=== PATIENT | male | born 1990 ===

== ENCOUNTER 2018-12-25 01:23 | Inpatient (IN) ==
[2018-12-25] MEDS ORDERED: SODIUM CHLORIDE 0.65% NA SOLN 45 ML (OCEAN) PRN (02:06)
[2018-12-25] MEDS ORDERED: ACETAMINOPHEN 325 MG TAB PO PRN (02:06)
[2018-12-25] MEDS ORDERED: ALUMINUM/MAGNESIUM SUSP 30 ML UDC PO PRN (02:06)
[2018-12-25] MEDS ORDERED: BISMUTH SUBSALICYLATE PER ML OMNICELL CHARGE PO PRN (02:06)
[2018-12-25] MEDS ORDERED: MAGNESIUM HYDROXIDE SUSP 30 ML UDC PO PRN (02:06)
[2018-12-25] MEDS ORDERED: PATIENT'S ALLERGY INFO NEEDS ENTERED SCH (03:00)
[2018-12-25] MEDS ORDERED: INFLUENZA VIRUS QUAD VACCINE 0.5 ML SYR IM ONE (08:15)
[2018-12-25] MEDS ORDERED: INFLUENZA ADMINISTRATION CHARGE ONE (08:15)
[2018-12-25] MEDS: NICOTINE 14 MG/24 HR PATCH TD SCH (10:50)
[2018-12-25] MEDS ORDERED: HALOPERIDOL 5 MG TAB PO PRN (11:48)
[2018-12-25] MEDS: HALOPERIDOL 5 MG TAB PO PRN ×2 (11:54→16:26)
--- NOTE | 2018-12-25 12:10 | History & Physical ---
Date of Service December 25, 2018 Impression / Recommendations Impression 28 yo male from [place], admitted voluntarily to our unit from [facility] after being observed to be confused at a local store. He has an unclear mental health history and we will need to call his father for additional information about past providers and medications. He doesn't like the seroquel he's on due to AM sedation which could then lead to noncompliance so will explore other options. For now will use Haldol 5 mg q 4 h prn, which he agrees to take, and continue depakote with level in the AM. Mood is depressed, tearful , but would like to get additional diagnositic information before considering an antidepressant. Abilify could be an option if no previous trial. At this time, the patient is in need of inpatient treatment due to the severity of his condition and the risk for self harm based on confused, slowed thinking. (1) Unspecified psychosis: 12/25 - Haldol 5 mg q 4 h prn psychosis until we obtain more information - Call father for additional supplemental information about past meds, psych providers and hospitalizations - Continue Depakote ER 100 mg HS with level in the AM - DC Seroquel - Q 15 min checks for safety - Excuse patient from groups today - Will need psychiatric aftercare - Safety planning - Patient doesn't know where his car is. Will need to clarify with [facility] police - Obtain records from [facility] Present on Admission?: Yes Inventory Assets Strengths: Willingness to engage in treatment Needs: To consistently be in psychiatric treatment Risk Factors Assessment Male: Yes : Yes Do You Have Access To A Gun?: No Health Problems: No Mental Health Diagnoses: Yes Substance Use Disorders: No Previous Attempt: No Family History of Suicide: Yes Previous Psychiatric Hospitalization: Yes Smoker: Yes Protective Factors Assessment : No Responsible for Young Children: No Employed: Yes Supportive Family: Yes Psychiatric History Identifying Data FIDENCIO ROMERO is a 28-year-old M from [place], who is admitted voluntarily on transfer from [facility] where he was taken after appearing confused at a local store. Information is gathered from the patient and not necessarily considered to be reliable. Chief Complaint "I wanted to go see my uncle and cousins.". History of Present Illness The patient is a 28 yo male who grew up in [place]. He is a difficult historian admitting his thoughts are confused and slowed. 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 He is embarrassed to go to work late. He recently decided that he wanted to go visit an uncle and cousins in [place], and left without notifying work. He says that he got as far as [place] before he became confused and didn't know where he was , and so he pulled over at a bar and had some beer and cigarettes. From there the timeline is a little unclear, but says that at one point he pulled into a nondenominational parking lot, spent the night somewhere at a hotel. The next day he found a map, and went to a gas station an "hung out for a few hours". He started driving again and got to [place] before he got confused again, pulled into a [employer] and had a proteing shake. It is reported that the store employees called 911 and he was taken to [facility], and from there transferred to our hospital. Today he was reluctant to get up for the interview, as he got little sleep last night. He reports that in the last month his mood has been "Very depressed.", "Very driven.", "Not happy.". His sleep is "pretty consistent" and energy is "good". He reports "a lot" of anxiety but denies panic attacks. He denies ever having had aud/vis hallucinations but had an experience in the [facility] ER during which he thought "all the blood was falling out of me". He reports slowed thoughts, saying he is having trouble expressing himself. He denies chronic problems with anger, but admits to hitting a tray in the [facility] ER in anger resulting in scraped knuckles. He denies chronic SIB, but tearfully says that he burnt himself once in the past. He says that he has been diagnosed with bipolar disorder, and schizoaffective disorder in the past, but is not currently being seen by a psychiatrist. Past Psychiatric History Previous Psych History: Difficult to determine at this time, but says that he has been seen by psychiatrists in the past Current Psychiatric Diagnosis: Bipolar disorder, schizoaffective disorder (per patient) Outpatient Services: None, but says he was to have been referred to a psychiatric provider. Previous Psych Admissions: 2009 Do You Have Access To A Gun?: No History of Previous Suicide Attempt: No Past Medication Trials: Risperdal- felt slowed Zyprexa- weight gain Haldol- "that's scarey" Prozac- didn't help Additional Notes: Says that he has had many med trials but can't remember details Allergies Allergy/AdvReac Type Severity Reaction Status Date / Time No Known Allergies Allergy Unverified 12/25/18 05:41 Home Medications Home Medications Medication Instructions Recorded Confirmed Type Depakote ER 1,000 mg PO HS 12/25/18 12/25/18 History quetiapine [Seroquel XR] 300 mg PO PM 12/25/18 12/25/18 History Family History Family History of: Depression (mother), Alcoholism/Drug Abuse (mother abused alcohol for a while) and Suicide Completion (grandfather) Alcohol History Hx of Alcohol Use Over the Past 12 Months: Yes (2-3 beers once per week) Says he will drink one night per week, denies legal problems related to alcohol Smoking Use Have You Smoked or Used Tobacco Products in the Last 30 Days: Yes tobacco type: cigarettes Smoking Status: Smoker, status unknown Substance History Hx of Prescription Med Misuse Over the Past 12 Months: No Hx of Over the Counter Med Misuse Over the Past 12 Months: No Hx of Inhalent Misuse Over the Past 12 Months: No Hx of Organic Substance Use Over the Past 12 Months: No Hx of Illegal Substances/Street Drug Use Over Past 12 Months: No Problems as a Result of Past Substance Use: None Identified Personal History Highest Grade Completed: High School Graduate Employment Status: [employer] Install[employer] Employed Marital Status: Single Number Of Children: None Beliefs That Will Affect Care: None Hx Legal Problems: No Hx Traumatic Life Events: No Patient History Social History Feels Safe at Home: Yes Smoking Status: Smoker, status unknown Beliefs That Will Affect Care: None Preferred Language: Hebrew Communication Ability: psychotic 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 Jas Fuchs in [facility] ED was reviewed and accepted as medical clearance for our unit. Psychiatric Orientation: alert and cooperative Apperance: appropriately dressed and appropriately groomed (shirt buttoned up incorrectly) Eye Contact: + poor eye contact Motor Behavior: steady gait and station and no abnormal motor movements Speech is slowed, quiet, garbled, at times hard to understand Affect: + tearful affect Mood: + depressed mood slowed Thought Content: + cognitive distortions Suicidal Thoughts: denies suicidal plan and denies suicidal intent; + reports suicidal thoughts Homicidal Thoughts: denies homicidal thoughts Hallucinations: no auditory hallucinations and no visual hallucinations Cognition: language grossly intact Estimated Intelligence: consistent with education level Insight: + severely impaired insight Judgement: + severely impaired judgement Vital Signs (Past 24 Hours) Last Vital Signs Resp 16 12/25/18 04:09 Results & Data Laboratory Results Labs from [facility] have been reviewed. Current Inpatient Medications Current Inpatient Medications: Current Inpatient Medications Acetaminophen (Tylenol) 650 mg PO Q4H PRN PRN Reason: Headache or Minor Fever Stop: 01/24/19 02:05 Al Hydrox/Mg Hydrox/Simethicone (Maalox) 30 ml PO Q4H PRN PRN Reason: GI Upset Stop: 01/24/19 02:05 Benztropine Mesylate (Cogentin) 1 mg PO Q4 PRN PRN Reason: EPS Stop: 01/24/19 02:10 Bismuth Subsalicylate (Kaopectate) 15 ml PO PRN PRN PRN Reason: Loose Stool Stop: 01/24/19 02:05 Divalproex Sodium (Depakote Extended Release) 1,000 mg PO HS [facility] Stop: 01/24/19 21:59 Haloperidol (Haldol) 5 mg PO Q4 PRN PRN Reason: Agitation Stop: 01/24/19 02:08 Haloperidol (Haldol) 5 mg PO Q4H PRN PRN Reason: psychosis Stop: 01/24/19 11:59 Hydroxyzine HCl (Vistaril) 50 mg PO HSZ PRN PRN Reason: Insomnia Stop: 01/24/19 02:05 Hydroxyzine HCl (Vistaril) 25 mg PO Q4H PRN PRN Reason: Anxiety Stop: 01/24/19 02:05 Lorazepam (Ativan) 2 mg PO Q4 PRN PRN Reason: Anxiety Stop: 01/24/19 02:07 Magnesium Hydroxide (Milk Of Magnesia) 30 ml PO DAILY PRN PRN Reason: Heartburn Stop: 01/24/19 02:05 Miscellaneous (Remove Nicoderm Patch) 1 ea N/A DAILY@2100 [facility] Stop: 01/24/19 20:59 Nicotine (Nicoderm Cq) 14 mg TD QAM [facility] Stop: 01/24/19 08:59 Last Admin: 12/25/18 10:50 Dose: 14 mg Nicotine Polacrilex (Nicorette 2mg) 1 piece MT UD PRN PRN Reason: Nicotine Withdrawal Stop: 01/24/19 02:05 Quetiapine Fumarate (Seroquel) 300 mg PO HS [facility] Stop: 01/24/19 21:59 Sodium Chloride ([place] Nasal) 1 - 2 sprays NA PRN PRN PRN Reason: Nasal Dryness/Congestion Stop: 01/24/19 02:05 CPT Code CPT Code Initial Hospital Care: 12885
[2018-12-25] MEDS: BENZTROPINE MESYLATE 1 MG TAB PO PRN (16:26)
[2018-12-25] MEDS: LORazepam 2 MG TAB PO PRN (16:26)
[2018-12-25] MEDS: DIVALPROEX EXTENDED RELEASE 500 MG TAB PO SCH (21:04)
[2018-12-25] MEDS ORDERED: QUETIAPINE FUMARATE 300 MG TABLET PO SCH (22:00)
[2018-12-26] MEDS: NICOTINE 14 MG/24 HR PATCH TD SCH ×2 (09:20→20:14)
--- NOTE | 2018-12-26 09:44 | Psychiatric Progress Note ---
Date of Service December 26, 2018 Impression / Recommendations Impression 28 yo male from [place], admitted voluntarily to our unit from [facility] ED after being observed to be confused at a local store. Father has provided additional information about his mental health history and treatment and we will send for records from his OP provider and the [facility] where he was inpatient for a year. He is agreeable to a trial of oral Invega which would provide the opportunity to move to Sustenna if needed We will continue depakote , but in view of having missed dosed will not order a level for 5 days. Will obtain FLP and FBS for monitoring purposes. (1) Unspecified psychosis: 12/25 - Haldol 5 mg q 4 h prn psychosis until we obtain more information - Call father for additional supplemental information about past meds, psych providers and hospitalizations - Continue Depakote ER 100 mg HS with level in the AM - DC Seroquel - Q 15 min checks for safety - Excuse patient from groups today - Will need psychiatric aftercare - Safety planning - Patient doesn't know where his car is. Will need to clarify with [facility] police - Obtain records from [place] hospitalization 12/26 - Invega 3 mg HS increasing to 6 mg tomorrow - Consider Sustenna for improved compliance, but would like to see previous records to determine why sustenna was stopped in the past. - Continue reality orientation, safety planning Inventory Assets Strengths: Willingness to engage in treatment Needs: To consistently be in psychiatric treatment Risk Factors Assessment Male: Yes : Yes Do You Have Access To A Gun?: No Health Problems: No Mental Health Diagnoses: Yes Substance Use Disorders: No Previous Attempt: No Family History of Suicide: Yes Previous Psychiatric Hospitalization: Yes Smoker: Yes Protective Factors Assessment : No Responsible for Young Children: No Employed: Yes Supportive Family: Yes Interval History Identifying Information 28 yo male from [place], admitted voluntarily on transfer from [place]. He had been found at a local store appearing confused. He has a long mental health hx, dx schizoaffective disorder, having been in the [facility] hospital for a year. Chief Complaint "I got a lot of rest.". Review of Systems Sleep Information Total Hours of Sleep: 9.5 Sleep Comments: pt appeared to sleep 2.5 hrs during evening shift . pt on q-15 minute checks Meal Information Percent Meal Consumed - Breakfast: 100 Percent Meal Consumed - Lunch: 100 Percent Meal Consumed - Dinner: 0 Subjective Subjective Patient was seen & assessed and interval progress reviewed with Treatment Team. Nursing reports that the patient received a prn of haldol yesterday and has slept much of the time since. Today he is slightly more organized, and slightly better able to express himself. I review with him the information provided by his father (see below) and Jose cannot provide any further clarification about past med trials. He doesn't remember anything about Sustenna and does not remember being on Invega pills. Today he says that he does not have auditory hallucinations but is having visual experiences ie seeing his father working, the house he grew up in, and his mother being distressed, but denies that these images are as real as I am to him. He rubs his knuckles expressing pain, saying that hitting the tray yesterday "was dumb" . He denies any clear delusions and says that he feels safe in this hospital. He denies side effects to medications. I review a trial of oral Invega including the need for monitoring labs and he agrees to try. He denies SI/HI. Summary of Past History 12/26/18 History from father. Patient's first hospitalization was at age 18 after a concussion. Jose saw a head injury specialist in [place] and was diagnosed with post concussive syndrome. He has had multiple hospitalizations over the years, diagnosis schizoaffective disorder, and was in [facility] for a year having been discharged about a year ago. He was discharged on court ordered medications and that order in fall 2017. The patient has a history of some aggressive behaviors including pushing people and hitting things and father was concerned about him being around other patients. He has been on multiple meds in the past, some of which include: haldol which caused him tremors, Clozaril to which he had side effects, and Sustenna. He currently lives with his parents in [place] and recieves his mental health care through [facility]. Father said that the patient had been at his new job for only 1 day, but felt that he didn't belong there. Father may come to visit this weekend. Medication Trials Clozaril- side effects Sustenna Haldol- tremor risperdal- slowed zyprexa- weight gain Physical Exam Psychiatric Orientation: alert and cooperative Apperance: appropriately dressed and appropriately groomed Eye Contact: + fair eye contact Motor Behavior: steady gait and station and no abnormal motor movements Less garbled today Affect: + blunted affect Mood: + anxious mood disorganized, with disconnected comments Thought Content: reality based without delusions Suicidal Thoughts: denies suicidal thoughts Homicidal Thoughts: denies homicidal thoughts Hallucinations: + visual hallucinations (sees his house, his father working and mother in distress); no auditory hallucinations Cognition: language grossly intact Estimated Intelligence: average estimated intelligence Insight: + impaired insight Judgement: + impaired judgement Vital Signs (Past 24 Hours) Last Vital Signs Temp 36.7 C 12/26/18 07:01 Pulse 73 12/26/18 07:02 Resp 16 12/26/18 07:01 BP 109/71 12/26/18 07:02 Results & Data Current Inpatient Medications Current Inpatient Medications: Current Inpatient Medications Acetaminophen (Tylenol) 650 mg PO Q4H PRN PRN Reason: Headache or Minor Fever Stop: 01/24/19 02:05 Al Hydrox/Mg Hydrox/Simethicone (Maalox) 30 ml PO Q4H PRN PRN Reason: GI Upset Stop: 01/24/19 02:05 Benztropine Mesylate (Cogentin) 1 mg PO Q4 PRN PRN Reason: EPS Stop: 01/24/19 02:10 Last Admin: 12/25/18 16:26 Dose: 1 mg Bismuth Subsalicylate (Kaopectate) 15 ml PO PRN PRN PRN Reason: Loose Stool Stop: 01/24/19 02:05 Divalproex Sodium (Depakote Extended Release) 1,000 mg PO HS [facility] Stop: 01/24/19 21:59 Last Admin: 12/25/18 21:04 Dose: 1,000 mg Haloperidol (Haldol) 5 mg PO Q4 PRN PRN Reason: Agitation Stop: 01/24/19 02:08 Last Admin: 12/25/18 16:26 Dose: 5 mg Hydroxyzine HCl (Vistaril) 50 mg PO HSZ PRN PRN Reason: Insomnia Stop: 01/24/19 02:05 Hydroxyzine HCl (Vistaril) 25 mg PO Q4H PRN PRN Reason: Anxiety Stop: 01/24/19 02:05 Lorazepam (Ativan) 2 mg PO Q4 PRN PRN Reason: Anxiety Stop: 01/24/19 02:07 Last Admin: 12/25/18 16:26 Dose: 2 mg Magnesium Hydroxide (Milk Of Magnesia) 30 ml PO DAILY PRN PRN Reason: Heartburn Stop: 01/24/19 02:05 Miscellaneous (Remove Nicoderm Patch) 1 ea N/A DAILY@2100 [facility] Stop: 01/24/19 20:59 Last Admin: 12/25/18 21:07 Dose: Not Given Nicotine (Nicoderm Cq) 14 mg TD QAM [facility] Stop: 01/24/19 08:59 Last Admin: 12/26/18 09:20 Dose: Not Given Nicotine Polacrilex (Nicorette 2mg) 1 piece MT UD PRN PRN Reason: Nicotine Withdrawal Stop: 01/24/19 02:05 Sodium Chloride ([place] Nasal) 1 - 2 sprays NA PRN PRN PRN Reason: Nasal Dryness/Congestion Stop: 01/24/19 02:05 Post Discharge Appointments Primary Care Physician Name Of Family Doctor: unknown CPT Code CPT Code 34987
--- NOTE | 2018-12-26 15:13 | Medical Student Progress Note ---
Date of Service December 26, 2018 Assessment & Plan (1) Unspecified psychosis: This is a 28-year-old man with a history of unspecific psychotic disorder who was taken to an emergency department in [place] for being found acting strangely in a store and was transferred to [facility] for psychiatric care. He is in good spirits today and has no complaints, however, he still has strange behavior such as sitting sideways in a chair and making poor eye contact. His responses are tangential. He required frequent redirection while playing games with the group. He has poor memory and insight into his condition. 1. Unspecified psychotic disorder - Anticipate outpatient records for more detail on his diagnoses as he is a poor historian. - Continue Depakote ER 100mg qHS - Continue paliperidone 3mg qHS. Escalate to 6mg on 12/27. Goal is to transition to IM therapy as he is noncompliant with his medications. - Continue haloperidol 5mg q4 PRN and benztropine 1 mg q4 PRN. - Encourage group therapy and activities. - Q15 safety checks. - Plan for family meeting. 2. Disposition - Jose continues to have disorganized thoughts and speech. - Continue inpatient hospitalization until meds are optimized and outpatient care coordinated. Subjective This is a 28-year-old man with a history of unspecific psychotic disorder who was taken to an emergency department in [place] for being found acting strangely in a store and was transferred to [facility] for psychiatric care. He says he thinks he has "a mild form of schizophrenia." He said he had a "great night' s sleep" and that he's been eating well. He describes his mood as "refreshed." He denies hallucinations, suicidal ideation, or homicidal ideation. His goal during his hospitalization is to "get healthy." Jose offers no more coherent history at this time. Physical Exam 2 Vital Signs (Past 24 Hours): Last Vital Signs Temp 36.7 C 12/26/18 07:01 Pulse 73 12/26/18 07:02 Resp 16 12/26/18 07:01 BP 109/71 12/26/18 07:02 Psychiatric: Orientation: alert Apperance: appropriately dressed and appropriately groomed Eye Contact: + poor eye contact (Jose sits sideways in his chair and looks at the wall, but occasionally glances to make eye contact ) Motor Behavior: no abnormal motor movements Speech: normal rate/rhythm/ volume of speech Affect: euthymic affect Thought Process: + thought blocking and + tangential thought process Suicidal Thoughts: denies suicidal thoughts Homicidal Thoughts: denies homicidal thoughts Hallucinations: no auditory hallucinations and no visual hallucinations Cognition: + recent memory not intact and + remote memory not intact Insight: + impaired insight Judgement: + impaired judgement Results & Data Medications Administered Benztropine Mesylate (Cogentin) 1 mg PO Q4 PRN PRN Reason: EPS Stop: 01/24/19 02:10 Last Admin: 12/25/18 16:26 Dose: 1 mg Divalproex Sodium (Depakote Extended Release) 1,000 mg PO HS [facility] Stop: 01/24/19 21:59 Last Admin: 12/25/18 21:04 Dose: 1,000 mg Haloperidol (Haldol) 5 mg PO Q4 PRN PRN Reason: Agitation Stop: 01/24/19 02:08 Last Admin: 12/25/18 16:26 Dose: 5 mg Admin: 12/25/18 11:54 Dose: 5 mg Lorazepam (Ativan) 2 mg PO Q4 PRN PRN Reason: Anxiety Stop: 01/24/19 02:07 Last Admin: 12/25/18 16:26 Dose: 2 mg Miscellaneous (Remove Nicoderm Patch) 1 ea N/A DAILY@2100 [facility] Stop: 01/24/19 20:59 Last Admin: 12/25/18 21:07 Dose: Not Given Nicotine (Nicoderm Cq) 14 mg TD QAM [facility] Stop: 01/24/19 08:59 Last Admin: 12/26/18 09:20 Dose: Not Given Admin: 12/25/18 10:50 Dose: 14 mg
[2018-12-26] MEDS: PALIPERIDONE 3 MG TABCR PO SCH (20:56)
[2018-12-26] MEDS: DIVALPROEX EXTENDED RELEASE 500 MG TAB PO SCH (20:56)
--- NOTE | 2018-12-27 08:27 | Psychiatric Progress Note ---
Date of Service December 27, 2018 Impression / Recommendations Impression 28 y/o male from [place], admitted voluntarily to our unit from [facility] after leaving [place] and driving to [place] where he became lost, eventually coming to [place] and was confused in a local store. Father has provided additional information about his mental health history and treatment and we have reviewed records from his OP psychiatrist, and have requested state [facility] records where he was inpatient for a year. He has agreed to a trial of oral Invega which would provide the opportunity to move to Sustenna if needed We continued Depakote, but in view of having missed doses will not order a level for 5 days. Inpatient treatment is medically necessary as he continues with psychosis and disorganization. (1) Unspecified psychosis: 12/25 - Haldol 5 mg q 4 h prn psychosis until we obtain more information - Call father for additional supplemental information about past meds, psych providers and hospitalizations - Continue Depakote ER 100 mg HS with level in the AM - DC Seroquel - Q 15 min checks for safety - Excuse patient from groups today - Will need psychiatric aftercare - Safety planning - Patient doesn't know where his car is. Will need to clarify with [facility] police - Obtain records from [place] hospitalization 12/26 - Invega 3 mg HS increasing to 6 mg tomorrow - Consider Sustenna for improved compliance, but would like to see previous records to determine why Sustenna was stopped in the past. - Continue reality orientation, safety planning 12/27 - Collateral obtained from parents and outpatient psychiatric records reviewed, awaiting [facility] records. - Continue paliperidone and increase to 6 mg daily. Fasting lipid profile and glucose ordered for tomorrow morning for monitoring on an atypical antipsychotic. - Parents coming this weekend from [place], will hold family meeting. Inventory Assets Strengths: Willingness to engage in treatment Needs: To consistently be in psychiatric treatment Risk Factors Assessment Male: Yes : Yes Do You Have Access To A Gun?: No Health Problems: No Mental Health Diagnoses: Yes Substance Use Disorders: No Previous Attempt: No Family History of Suicide: Yes Previous Psychiatric Hospitalization: Yes Smoker: Yes Protective Factors Assessment : No Responsible for Young Children: No Employed: Yes Supportive Family: Yes Interval History Identifying Information 28 yo male from [place], admitted voluntarily on 12/25/18 on transfer from [place]. He had been found at a local store appearing confused. He has a long mental health hx, dx schizoaffective disorder, having been in the [facility] for a year. Chief Complaint "I don't know". Review of Systems Sleep Information Total Hours of Sleep: 4 Sleep Comments: pt given vistaril per rn. pt on q-15 minute checks Meal Information Percent Meal Consumed - Breakfast: 100 Percent Meal Consumed - Lunch: 100 Percent Meal Consumed - Dinner: 100 Medication Trials Clozaril- side effects Sustenna Haldol- tremor risperdal- slowed zyprexa- weight gain Subjective Subjective Patient was seen & assessed and interval progress reviewed with Treatment Team. Staff report he attends some groups but is unable to participate appropriately, is disorganized, and records were obtained from his previous outpatient psychiatrist at [facility] (see below). On my assessment today, he was seen with Grace Loving MS4. He reports he is tired, and answers "I don't know" to many questions. He denies side effects to medication, and then says "it 's just sugar, I had two cokes..." He says groups are "okay" and cannot give further information. He says he is improving, but cannot say how, "I don't know." He describes his mood as "well....I'm really tired, I had two cokes, I was running around a couple days ago, cigarettes..." Summary of Past History Records reviewed from [facility]: Discharge summary (admission date 05/15/2018 -discharge date 09/12/2018). He had been living at a [facility] rehab facility, reported a history of multiple head injuries from football, alcohol abuse, mood instability, and paranoia. He was referred to the [facility] from [facility] of mental health, after he walked into their clinic in February 2018 with his child welfare caseworker from [place], as he was living locally at the rehab facility. He was on an AOT, and reported history of heather for which she had been hospitalized multiple times, as well as a history of depression, but was a poor historian. He also reported a history of delusional thinking. His first hospitalization was in 2007 at age 18 for a "nervous breakdown" in the context of academic and relationship stressors. He was hospitalized at [facility] for about 2 weeks, and has had 7 additional hospitalizations since that time. Most of his hospitalizations were due to aggressive behavior and psychosis or heather. He had been on Depakote since age 18 and tolerated it well, but had failed multiple antipsychotic trials due to side effects. He was on clozapine at the time and reported morning sedation from it. He started drinking in ninth grade, and became a heavy alcohol user during his nadir year of high school. He also reported a history of cannabis, cocaine, and mushroom use. He was ambivalent about stopping alcohol and cigarette use. He reported a history of multiple head injuries while playing football in high school, he denied loss of consciousness. He was diagnosed with schizoaffective disorder bipolar type, and rule out mood and psychotic disorder due to TBI. He was seen only twice in the program, as he only stayed at the rehab facility for 1 month, if he did not participate in the program. His parents then took him to multiple shelters in [place], but they would not accept him, so they took him home. He was then transferred back to [facility] clinic. Medication Trials Clozaril- side effects Sustenna -did well Haldol- tremor risperdal- slowed zyprexa- weight gain Aripiprazole -poor compliance Depakote -since age 18 Physical Exam Psychiatric Appears tired Apperance: appropriately dressed and appeared stated age WNWD WM, mildly disheveled Eye Contact: + poor eye contact Motor Behavior: steady gait and station and no abnormal motor movements Underproductive Affect: + blunted affect patient answered with unrelated information Thought Process: + thought blocking, + tangential thought process and + incoherent thought process paucity of thought content Hallucinations: no auditory hallucinations Cognition: + recent memory not intact, + attention not intact and + language not intact Insight: + impaired insight Judgement: + impaired judgement Vital Signs (Past 24 Hours) Last Vital Signs Temp 36.4 C L 12/27/18 06:46 Pulse 72 12/27/18 06:47 Resp 16 12/27/18 06:46 BP 99/61 L 12/27/18 06:47 Results & Data Current Inpatient Medications Current Inpatient Medications: Current Inpatient Medications Acetaminophen (Tylenol) 650 mg PO Q4H PRN PRN Reason: Headache or Minor Fever Stop: 01/24/19 02:05 Al Hydrox/Mg Hydrox/Simethicone (Maalox) 30 ml PO Q4H PRN PRN Reason: GI Upset Stop: 01/24/19 02:05 Benztropine Mesylate (Cogentin) 1 mg PO Q4 PRN PRN Reason: EPS Stop: 01/24/19 02:10 Last Admin: 12/25/18 16:26 Dose: 1 mg Bismuth Subsalicylate (Kaopectate) 15 ml PO PRN PRN PRN Reason: Loose Stool Stop: 01/24/19 02:05 Divalproex Sodium (Depakote Extended Release) 1,000 mg PO HS LOKESH Stop: 01/24/19 21:59 Last Admin: 12/26/18 20:56 Dose: 1,000 mg Haloperidol (Haldol) 5 mg PO Q4 PRN PRN Reason: Agitation Stop: 01/24/19 02:08 Last Admin: 12/25/18 16:26 Dose: 5 mg Hydroxyzine HCl (Vistaril) 50 mg PO HSZ PRN PRN Reason: Insomnia Stop: 01/24/19 02:05 Last Admin: 12/27/18 01:49 Dose: 50 mg Hydroxyzine HCl (Vistaril) 25 mg PO Q4H PRN PRN Reason: Anxiety Stop: 01/24/19 02:05 Lorazepam (Ativan) 2 mg PO Q4 PRN PRN Reason: Anxiety Stop: 01/24/19 02:07 Last Admin: 12/25/18 16:26 Dose: 2 mg Magnesium Hydroxide (Milk Of Magnesia) 30 ml PO DAILY PRN PRN Reason: Heartburn Stop: 01/24/19 02:05 Miscellaneous (Remove Nicoderm Patch) 1 ea N/A DAILY@2100 LOKESH Stop: 01/24/19 20:59 Last Admin: 12/26/18 20:57 Dose: Not Given Nicotine (Nicoderm Cq) 14 mg TD QAM LOKESH Stop: 01/24/19 08:59 Last Admin: 12/26/18 20:14 Dose: 14 mg Nicotine Polacrilex (Nicorette 2mg) 1 piece MT UD PRN PRN Reason: Nicotine Withdrawal Stop: 01/24/19 02:05 Paliperidone (Invega) 3 mg PO HS LOKESH; Taper Stop: 03/15/19 21:59 Last Admin: 12/26/18 20:56 Dose: 3 mg Sodium Chloride ([place] Nasal) 1 - 2 sprays NA PRN PRN PRN Reason: Nasal Dryness/Congestion Stop: 01/24/19 02:05 Post Discharge Appointments Primary Care Physician Name Of Family Doctor: unknown CPT Code CPT Code 58350
[2018-12-27] MEDS: NICOTINE 14 MG/24 HR PATCH TD SCH (13:22)
[2018-12-27] MEDS: HALOPERIDOL 5 MG TAB PO PRN ×2 (14:19→19:01)
--- NOTE | 2018-12-27 16:16 | Medical Student Progress Note ---
Date of Service December 27, 2018 Assessment & Plan (1) Unspecified psychosis: This is a 28-year-old man with a history of unspecific psychotic disorder who was taken to an emergency department in [place] for being found acting strangely in a store and was transferred to [facility] for psychiatric care. Jose continues to exhibit psychotic behavior such as talking to himself, laughing inappropriately, and highly disorganized thought processes. 1. Unspecified psychotic disorder - Anticipate outpatient records for more detail on his diagnoses as he is a poor historian. - Continue Depakote ER 100mg qHS - Escalate to paliperidone 6mg on 12/27. Goal is to transition to IM therapy as he is noncompliant with his medications. - Follow fasting lipid panel and blood glucose - Continue haloperidol 5mg q4 PRN and benztropine 1 mg q4 PRN. - Encourage group therapy and activities. - Q15 safety checks. - Plan for family meeting. 2. Disposition - Jose continues to have disorganized thoughts and speech. - Continue inpatient hospitalization until meds are optimized and outpatient care coordinated. Subjective This is a 28-year-old man with a history of unspecific psychotic disorder who was taken to an emergency department in [place] for being found acting strangely in a store and was transferred to [facility] for psychiatric care. He is interviewed right after waking up and says, "I don't know, I'm just really tired." He says he is doing better but when asked to elaborote, he does not answer. He says "I don't know how to express myself anymore." He says is sleep and appetite are both good. He offers no more history. Staff have observed him pacing, speaking to himself, and laughing inappropriately. Physical Exam 2 Vital Signs (Past 24 Hours): Last Vital Signs Temp 36.4 C L 12/27/18 06:46 Pulse 72 12/27/18 06:47 Resp 16 12/27/18 06:46 BP 99/61 L 12/27/18 06:47 Psychiatric: Orientation: alert Apperance: appropriately dressed and appropriately groomed Eye Contact: + poor eye contact (eyes are closed for most of the visit) Motor Behavior: no abnormal motor movements Speech: + abnormal rate/rhythm/volume of speech (speech is mumbled and trails off. Answers are short and delayed.) Affect: + blunted affect Mood: + dysphoric mood (tired) Thought Process: + thought blocking (paucity of speech ) and + tangential thought process Hallucinations: + auditory hallucinations and + visual hallucinations Cognition: + recent memory not intact and + remote memory not intact Insight: + impaired insight Judgement: + impaired judgement Results & Data Medications Administered Acetaminophen (Tylenol) 650 mg PO Q4H PRN PRN Reason: Headache or Minor Fever Stop: 01/24/19 02:05 Last Admin: 12/27/18 15:41 Dose: 650 mg Benztropine Mesylate (Cogentin) 1 mg PO Q4 PRN PRN Reason: EPS Stop: 01/24/19 02:10 Last Admin: 12/25/18 16:26 Dose: 1 mg Divalproex Sodium (Depakote Extended Release) 1,000 mg PO HS LOKESH Stop: 01/24/19 21:59 Last Admin: 12/26/18 20:56 Dose: 1,000 mg Admin: 12/25/18 21:04 Dose: 1,000 mg Haloperidol (Haldol) 5 mg PO Q4 PRN PRN Reason: Agitation Stop: 01/24/19 02:08 Last Admin: 12/27/18 14:19 Dose: 5 mg Admin: 12/25/18 16:26 Dose: 5 mg Admin: 12/25/18 11:54 Dose: 5 mg Hydroxyzine HCl (Vistaril) 50 mg PO HSZ PRN PRN Reason: Insomnia Stop: 01/24/19 02:05 Last Admin: 12/27/18 01:49 Dose: 50 mg Lorazepam (Ativan) 2 mg PO Q4 PRN PRN Reason: Anxiety Stop: 01/24/19 02:07 Last Admin: 12/25/18 16:26 Dose: 2 mg Miscellaneous (Remove Nicoderm Patch) 1 ea N/A DAILY@2100 [facility] Stop: 01/24/19 20:59 Last Admin: 12/26/18 20:57 Dose: Not Given Admin: 12/25/18 21:07 Dose: Not Given Nicotine (Nicoderm Cq) 14 mg TD QAM LOKESH Stop: 01/24/19 08:59 Last Admin: 12/27/18 13:22 Dose: 14 mg Admin: 12/26/18 20:14 Dose: 14 mg Admin: 12/26/18 09:20 Dose: Not Given Admin: 12/25/18 10:50 Dose: 14 mg Paliperidone (Invega) 3 mg PO HS LOKESH; Taper Stop: 01/26/19 21:59 Last Admin: 12/26/18 20:56 Dose: 3 mg
[2018-12-27] MEDS: LORazepam 2 MG TAB PO PRN (19:01)
[2018-12-27] MEDS: BENZTROPINE MESYLATE 1 MG TAB PO PRN (19:01)
[2018-12-27] MEDS: DIVALPROEX EXTENDED RELEASE 500 MG TAB PO SCH (21:09)
[2018-12-27] MEDS: PALIPERIDONE 3 MG TABCR PO SCH (21:09)
[2018-12-28 08:58] LABS: Glucose Fasting 89 mg/dl (70-99)
[2018-12-28 09:05] LABS: Chol HDL Ratio 4; Cholesterol 169 mg/dl (0-200); HDL Cholesterol 48 mg/dl; LDL Cholesterol Calculated 104 mg/dl; Triglycerides 83 mg/dl (0-150); VLDL Cholesterol 17 mg/dl
[2018-12-28] MEDS: NICOTINE 14 MG/24 HR PATCH TD SCH (09:18)
[2018-12-28] MEDS: NICOTINE POLACRILEX 2 MG GUM MT PRN (10:01)
--- NOTE | 2018-12-28 10:27 | Psychiatric Progress Note ---
Date of Service December 28, 2018 Impression / Recommendations Impression thoughts not slowed, and are more organized, but he remains delusional and having intermittant aud hallucinations. Invega just increased to 6 mg last night and so will continue for now, but will benefit from Sustenna given parents reports of medication noncompliance. Will continue to encourage use of prn haldol if feeling agitated. due to his lack of impulse control yesterday, will maintain on MNPR for now. Parents planning to visit this weekend. (1) Unspecified psychosis: 12/25 - Haldol 5 mg q 4 h prn psychosis until we obtain more information - Call father for additional supplemental information about past meds, psych providers and hospitalizations - Continue Depakote ER 100 mg HS with level in the AM - DC Seroquel - Q 15 min checks for safety - Excuse patient from groups today - Will need psychiatric aftercare - Safety planning - Patient doesn't know where his car is. Will need to clarify with [facility] police - Obtain records from [place] hospitalization 12/26 - Invega 3 mg HS increasing to 6 mg tomorrow - Consider Sustenna for improved compliance, but would like to see previous records to determine why Sustenna was stopped in the past. - Continue reality orientation, safety planning 12/27 - Collateral obtained from parents and outpatient psychiatric records reviewed, awaiting [facility] records. - Continue paliperidone and increase to 6 mg daily. Fasting lipid profile and glucose ordered for tomorrow morning for monitoring on an atypical antipsychotic. - Parents coming this weekend from [place], will hold family meeting. 12/28 - Continue Invega 6 mg and if no limiting side effects, initiate Sustenna - Patient c/o some restlessnes and muscle sensations. Will order one time dose Artane 5 mg and if helpful will schedule. Inventory Assets Strengths: Willingness to engage in treatment Needs: To consistently be in psychiatric treatment Risk Factors Assessment Male: Yes : Yes Do You Have Access To A Gun?: No Health Problems: No Mental Health Diagnoses: Yes Substance Use Disorders: No Previous Attempt: No Family History of Suicide: Yes Previous Psychiatric Hospitalization: Yes Smoker: Yes Protective Factors Assessment : No Responsible for Young Children: No Employed: Yes Supportive Family: Yes Interval History Identifying Information 28 yo male from [place], admitted voluntarily on 12/25/18 on transfer from [place]. He had been found at a local store appearing confused. He has a long mental health hx, dx schizoaffective disorder, having been in the [facility] for a year. Chief Complaint "Better today. ". Review of Systems Sleep Information Total Hours of Sleep: 9.5 Sleep Comments: changed his sleep position a few times during each hour. sleep hours total between 01/22 and 09/20 shifts Meal Information Percent Meal Consumed - Breakfast: 100 Percent Meal Consumed - Lunch: 100 Percent Meal Consumed - Dinner: 100 Medication Trials Clozaril- side effects Sustenna Haldol- tremor risperdal- slowed zyprexa- weight gain Subjective Subjective Patient was seen & assessed and interval progress reviewed with Treatment Team. Yesterday afternoon the patient had an episode of agitation/psychosis, believing that a visitor was communicating with him negatively, and in response he started to yell at him and make verbal threats. He was redirected to his room, and he willingly took prn meds. Today he reviews that incident saying that he was having muscle tension in his legs, and experiencing "waves of energy " in the room leading him to feel agitated. Then he heard a voice that he thought was the devil, thought it was coming from a visitor in the dayroom and felt threatened. He believes that the prn haldol was helpful and today says the he is "thinking more clearly". He denies any further episodes of hearing the devil or any other voice, and recognizes that the visitor was not talking to him or in any way threatening, and says that he apoligized to the patient of the visitor. He does say that he feels stiff in the morning, as if he needs to stretch, and possibly restless. He agrees to a one time dose of Artane Summary of Past History 12/26/18 History from father. Patient's first hospitalization was at age 18 after a concussion. Jose saw a head injury specialist in [place] and was diagnosed with post concussive syndrome. He has had multiple hospitalizations over the years, diagnosis schizoaffective disorder, and was in [facility] for a year having been discharged about a year ago. He was discharged on court ordered medications and that order in fall 2017. The patient has a history of some aggressive behaviors including pushing people and hitting things and father was concerned about him being around other patients. He has been on multiple meds in the past, some of which include: haldol which caused him tremors, Clozaril to which he had side effects, and Sustenna. He currently lives with his parents in [place] and recieves his mental health care through [facility]. Father said that the patient had been at his new job for only 1 day, but felt that he didn't belong there. Father may come to visit this weekend. Medication Trials Clozaril- side effects Sustenna Haldol- tremor risperdal- slowed zyprexa- weight gain Physical Exam Psychiatric Orientation: alert and cooperative Apperance: appropriately dressed and appropriately groomed Eye Contact: good eye contact Motor Behavior: + psychomotor agitation (mild, repositioning frequently) Speech: normal rate/rhythm/volume of speech Affect: + blunted affect Mood: + anxious mood Thought Process: goal directed thought process Thought Content: + delusions Suicidal Thoughts: denies suicidal thoughts Homicidal Thoughts: denies homicidal thoughts Hallucinations: + auditory hallucinations; no visual hallucinations Cognition: recent memory grossly intact, remote memory grossly intact, attention grossly intact and language grossly intact Estimated Intelligence: average estimated intelligence Insight: + impaired insight Judgement: + impaired judgement Vital Signs (Past 24 Hours) Last Vital Signs Temp 36.3 C L 12/28/18 06:47 Pulse 53 L 12/28/18 06:47 Resp 16 12/28/18 06:47 BP 91/56 L 12/28/18 06:47 Results & Data Laboratory Results Laboratory Results - last 24 hr 12/28/18 08:08 Fasting Glucose 89 Triglycerides 83 Cholesterol 169 LDL Cholesterol, Calc 104 VLDL Cholesterol, Calc 17 HDL Cholesterol 48 Cholesterol/HDL Ratio 4 Current Inpatient Medications Current Inpatient Medications: Current Inpatient Medications Acetaminophen (Tylenol) 650 mg PO Q4H PRN PRN Reason: Headache or Minor Fever Stop: 01/24/19 02:05 Last Admin: 12/27/18 15:41 Dose: 650 mg Al Hydrox/Mg Hydrox/Simethicone (Maalox) 30 ml PO Q4H PRN PRN Reason: GI Upset Stop: 01/24/19 02:05 Benztropine Mesylate (Cogentin) 1 mg PO Q4 PRN PRN Reason: EPS Stop: 01/24/19 02:10 Last Admin: 12/27/18 19:01 Dose: 1 mg Bismuth Subsalicylate (Kaopectate) 15 ml PO PRN PRN PRN Reason: Loose Stool Stop: 01/24/19 02:05 Divalproex Sodium (Depakote Extended Release) 1,000 mg PO HS LOKESH Stop: 01/24/19 21:59 Last Admin: 12/27/18 21:09 Dose: 1,000 mg Haloperidol (Haldol) 5 mg PO Q4 PRN PRN Reason: Agitation Stop: 01/24/19 02:08 Last Admin: 12/27/18 19:01 Dose: 5 mg Hydroxyzine HCl (Vistaril) 50 mg PO HSZ PRN PRN Reason: Insomnia Stop: 01/24/19 02:05 Last Admin: 12/27/18 01:49 Dose: 50 mg Hydroxyzine HCl (Vistaril) 25 mg PO Q4H PRN PRN Reason: Anxiety Stop: 01/24/19 02:05 Lorazepam (Ativan) 2 mg PO Q4 PRN PRN Reason: Anxiety Stop: 01/24/19 02:07 Last Admin: 12/27/18 19:01 Dose: 2 mg Magnesium Hydroxide (Milk Of Magnesia) 30 ml PO DAILY PRN PRN Reason: Heartburn Stop: 01/24/19 02:05 Miscellaneous (Remove Nicoderm Patch) 1 ea N/A DAILY@2100 LOKESH Stop: 01/24/19 20:59 Last Admin: 12/27/18 21:09 Dose: Not Given Nicotine (Nicoderm Cq) 14 mg TD QAM [facility] Stop: 01/24/19 08:59 Last Admin: 12/28/18 09:18 Dose: 14 mg Nicotine Polacrilex (Nicorette 2mg) 1 piece MT UD PRN PRN Reason: Nicotine Withdrawal Stop: 01/24/19 02:05 Last Admin: 12/28/18 10:01 Dose: 1 piece Paliperidone (Invega) 6 mg PO HS [facility]; Taper Stop: 01/26/19 21:59 Last Admin: 12/27/18 21:09 Dose: 6 mg Sodium Chloride ([place] Nasal) 1 - 2 sprays NA PRN PRN PRN Reason: Nasal Dryness/Congestion Stop: 01/24/19 02:05 Post Discharge Appointments Primary Care Physician Name Of Family Doctor: unknown CPT Code CPT Code 52806
[2018-12-28] MEDS ORDERED: TRIHEXYPHENIDYL HCL 2 MG TAB PO ONE (10:45)
--- NOTE | 2018-12-28 14:16 | Medical Student Progress Note ---
Date of Service December 28, 2018 Assessment & Plan (1) Unspecified psychosis: This is a 28-year-old man with a history of unspecific psychotic disorder who was taken to an emergency department in [place] for being found acting strangely in a store and was transferred to [facility] for psychiatric care. Jose continues to exhibit psychotic behavior such as talking to himself, laughing inappropriately, and highly disorganized thought processes. 1. Unspecified psychotic disorder - Anticipate outpatient records for more detail on his diagnoses as he is a poor historian. - Continue Depakote ER 100mg qHS - Escalate to paliperidone 6mg on 12/27. Goal is to transition to IM therapy as he is noncompliant with his medications. - Fasting lipid panel and blood glucose are WNL. - Continue haloperidol 5mg q4 PRN and benztropine 1 mg q4 PRN. - Begin trihexyphenidyl for restlessness - Encourage group therapy and activities. - Q15 safety checks. - Plan for family meeting on Saturday 12/30. 2. Disposition - Jose continues to have disorganized thoughts and speech. - Continue inpatient hospitalization until meds are optimized and outpatient care coordinated. Subjective This is a 28-year-old man with a history of unspecific psychotic disorder who was taken to an emergency department in [place] for being found acting strangely in a store and was transferred to [facility] for psychiatric care. When asked how he's doing he says, "I got fired up." He says he feels the need to "get the blood flowing" because he's anxious. He elaborates by saying that he's homesick but is also worried about what bed his parents will let him sleep in. He says he slept in his sister's room, went through her stuff, chuckled and said , "she can't get over her ex." He says that he is also anxious in anticipating his family meeting. Overall, he says "things are picking up" because he's better able to "calm down" and his "muscles are getting into a regular rhythm. He denies SI, HI, and hallucinations. Physical Exam 2 Vital Signs (Past 24 Hours): Last Vital Signs Temp 36.3 C L 12/28/18 06:47 Pulse 53 L 12/28/18 06:47 Resp 16 12/28/18 06:47 BP 91/56 L 12/28/18 06:47 Psychiatric: Orientation: alert Apperance: appropriately dressed and appropriately groomed Eye Contact: + fair eye contact Motor Behavior: no abnormal motor movements Speech: + abnormal rate/rhythm/volume of speech ( speech is mumbled and trails off. ) Affect: euthymic affect and + blunted affect Mood: + anxious mood Thought Process: + tangential thought process (random laughter in conversation) Suicidal Thoughts: denies suicidal thoughts Homicidal Thoughts: denies homicidal thoughts Hallucinations: no auditory hallucinations and no visual hallucinations Cognition: + recent memory not intact and + remote memory not intact Insight: + impaired insight Judgement: + impaired judgement Results & Data Medications Administered Acetaminophen (Tylenol) 650 mg PO Q4H PRN PRN Reason: Headache or Minor Fever Stop: 01/24/19 02:05 Last Admin: 12/27/18 15:41 Dose: 650 mg Benztropine Mesylate (Cogentin) 1 mg PO Q4 PRN PRN Reason: EPS Stop: 01/24/19 02:10 Last Admin: 12/27/18 19:01 Dose: 1 mg Admin: 12/25/18 16:26 Dose: 1 mg Divalproex Sodium (Depakote Extended Release) 1,000 mg PO HS LOKESH Stop: 01/24/19 21:59 Last Admin: 12/27/18 21:09 Dose: 1,000 mg Admin: 12/26/18 20:56 Dose: 1,000 mg Admin: 12/25/18 21:04 Dose: 1,000 mg Haloperidol (Haldol) 5 mg PO Q4 PRN PRN Reason: Agitation Stop: 01/24/19 02:08 Last Admin: 12/27/18 19:01 Dose: 5 mg Admin: 12/27/18 14:19 Dose: 5 mg Admin: 12/25/18 16:26 Dose: 5 mg Admin: 12/25/18 11:54 Dose: 5 mg Hydroxyzine HCl (Vistaril) 50 mg PO HSZ PRN PRN Reason: Insomnia Stop: 01/24/19 02:05 Last Admin: 12/27/18 01:49 Dose: 50 mg Lorazepam (Ativan) 2 mg PO Q4 PRN PRN Reason: Anxiety Stop: 01/24/19 02:07 Last Admin: 12/27/18 19:01 Dose: 2 mg Admin: 12/25/18 16:26 Dose: 2 mg Miscellaneous (Remove Nicoderm Patch) 1 ea N/A DAILY@2100 [facility] Stop: 01/24/19 20:59 Last Admin: 12/27/18 21:09 Dose: Not Given Admin: 12/26/18 20:57 Dose: Not Given Admin: 12/25/18 21:07 Dose: Not Given Nicotine (Nicoderm Cq) 14 mg TD QAM [facility] Stop: 01/24/19 08:59 Last Admin: 12/28/18 09:18 Dose: 14 mg Admin: 12/27/18 13:22 Dose: 14 mg Admin: 12/26/18 20:14 Dose: 14 mg Admin: 12/26/18 09:20 Dose: Not Given Admin: 12/25/18 10:50 Dose: 14 mg Nicotine Polacrilex (Nicorette 2mg) 1 piece MT UD PRN PRN Reason: Nicotine Withdrawal Stop: 01/24/19 02:05 Last Admin: 12/28/18 10:01 Dose: 1 piece Paliperidone (Invega) 6 mg PO HS [facility]; Taper Stop: 01/26/19 21:59 Last Admin: 12/27/18 21:09 Dose: 6 mg Admin: 12/26/18 20:56 Dose: 3 mg
[2018-12-28] MEDS: DIVALPROEX EXTENDED RELEASE 500 MG TAB PO SCH (21:35)
[2018-12-28] MEDS: TRIHEXYPHENIDYL HCL 2 MG TAB PO SCH (21:35)
[2018-12-28] MEDS: PALIPERIDONE 3 MG TABCR PO SCH (21:36)
[2018-12-29] MEDS: LORazepam 2 MG TAB PO PRN ×2 (03:53→20:29)
[2018-12-29] MEDS: HALOPERIDOL 5 MG TAB PO PRN ×2 (03:53→20:29)
[2018-12-29] MEDS: BENZTROPINE MESYLATE 1 MG TAB PO PRN ×2 (03:54→20:29)
[2018-12-29] MEDS: NICOTINE 14 MG/24 HR PATCH TD SCH (12:33)
[2018-12-29] MEDS: TRIHEXYPHENIDYL HCL 2 MG TAB PO SCH ×2 (12:33→20:26)
--- NOTE | 2018-12-29 16:10 | Psychiatric Progress Note ---
Date of Service December 29, 2018 Impression / Recommendations Impression While it may be that there are certain elements of a postconcussive syndrome evident in this case, it seems fairly clear to me that the patient's primary diagnosis is schizophrenia, with schizoaffective disorder depressed type as a rule out diagnosis. He does appear to be somewhat depressed, within the context of depressive symptoms, such as his difficulty finding a romantic partner and his inability to workwhile his siblings reportedly are all doing well and prospering. Thumbs struck by the prominent features of somewhat bizarre delusions, such as a belief that people can see through his skin and into his body unless he "walks up" and "develops lots of muscles." I am also struck by the fact that he appeared to be hallucinating and responding to internal stimuli during much of our encounter today, and his thinking is highly disorganized with prominent loose associations. The patient has severely impaired insight into his illness, but does recognize that he has a need for psychiatric treatment (despite a reported history of nonadherence with psychiatric treatment). He also does say that he is feeling "a little better" in the hospital and expresses a willingness to cooperate with treatment. At this point, serious harm would come to the patient were he not to be in the hospital, due to his extremely poor judgment and his inability to care for his own physical needs without the availability of the full spectrum of psychiatric services on a 24-hour basis at the hospital level of care. Today, I have increased his dose of Invega to a dose of 9 mg at bedtime, beginning tonight. Currently, his response to treatment has not been particularly favorable, although the patient, himself, offers that he does feel "better." Depending on his response to the increased dose of invaded, the next step would probably be to offer the patient a trial of Invega Sustenna in view of his past history of nonadherence. (1) Unspecified psychosis: 12/25 - Haldol 5 mg q 4 h prn psychosis until we obtain more information - Call father for additional supplemental information about past meds, psych providers and hospitalizations - Continue Depakote ER 100 mg HS with level in the AM - DC Seroquel - Q 15 min checks for safety - Excuse patient from groups today - Will need psychiatric aftercare - Safety planning - Patient doesn't know where his car is. Will need to clarify with [facility] police - Obtain records from [facility] hospitalization 12/26 - Invega 3 mg HS increasing to 6 mg tomorrow - Consider Sustenna for improved compliance, but would like to see previous records to determine why Sustenna was stopped in the past. - Continue reality orientation, safety planning 12/27 - Collateral obtained from parents and outpatient psychiatric records reviewed, awaiting [facility] hospital records. - Continue paliperidone and increase to 6 mg daily. Fasting lipid profile and glucose ordered for tomorrow morning for monitoring on an atypical antipsychotic. - Parents coming this weekend from [place], will hold family meeting. 12/28 - Continue Invega 6 mg and if no limiting side effects, initiate Sustenna - Patient c/o some restlessnes and muscle sensations. Will order one time dose Artane 5 mg and if helpful will schedule. 12/29 -After interviewing this patient fairly extensively I note that he does appear to be somewhat depressed at times, but he clearly seems to meet criteria for schizophrenia. More specifically, there are prominent delusions and hallucinations, and clear evidence of a thought disorder characterized by highly disorganized thinking and loose associations. -The patient indicates that he feels that he is tolerating both valproic acid and an Boogie well, and notes no side effects. -I will increase his dose of that in Boogie to a dose of 9 mg at bedtime, beginning tonight. Inventory Assets Strengths: Willingness to engage in treatment Needs: To consistently be in psychiatric treatment Risk Factors Assessment Male: Yes : Yes Do You Have Access To A Gun?: No Health Problems: No Mental Health Diagnoses: Yes Substance Use Disorders: No Previous Attempt: No Family History of Suicide: Yes Previous Psychiatric Hospitalization: Yes Smoker: Yes Protective Factors Assessment : No Responsible for Young Children: No Employed: Yes Supportive Family: Yes Interval History Identifying Information 28 yo male from [place], admitted voluntarily on 12/25/18 on transfer from [place]. He had been found at a local store appearing confused. He has a long mental health hx, dx schizoaffective disorder, having been in the [facility] hospital for a year. Chief Complaint "I need to get my blood back". Review of Systems Sleep Information Total Hours of Sleep: 1.5 Sleep Comments: pacing for most of shift until 0400. Refused medications until 0353, then agreeable due to agitation. Meal Information Percent Meal Consumed - Breakfast: 100 Percent Meal Consumed - Lunch: 100 Percent Meal Consumed - Dinner: 100 Medication Trials Clozaril- side effects Sustenna Haldol- tremor risperdal- slowed zyprexa- weight gain Subjective Subjective Patient was seen & assessed and interval progress reviewed with Treatment Team. I met individually with the patient in order to assess his current mental status, his response to treatment, coordinate any change in his treatment regimen, and address issues and concerns that may arise. The patient's thoughts are very disorganized, and had great difficulty providing me a coherent history. He acknowledges that he has a mental illness, but identifies it as "depression." The patient reports that he does not like Seroquel because it "gets into my bones and then the bone marrow has to kick it back out and once it is out it messes with me." (After fairly lengthy discussion it seemed that his concern is sedation.) However, the patient does say that he feels that Depakote is helpful and he has had no difficulty tolerating in Boogie 6 mg. Complicating the clinical picture is his report that he has had multiple concussions from playing football in high school. At one point, he tells me that he "loves to drink," but then seems to reverse himself and says "I may have just 2 or 3 beers, usually." Medication Trials Clozaril- side effects Sustenna Haldol- tremor risperdal- slowed zyprexa- weight gain Physical Exam Psychiatric Orientation: oriented to person The patient is able to name the hospital and correctly provide the month and year, but does not know the location of the hospital (which may be understandable given that he is from [place] of state) and cannot provide the date. Apperance: appropriately dressed Eye Contact: + poor eye contact Motor Behavior: + psychomotor retardation Speech: normal rate/rhythm/volume of speech Affect: + constricted affect Mood: + depressed mood Thought Process: + looseness of associations Thought Content: + paranoid and + delusions The patient reports that he believes that he needs to "build up [his] muscles so that people cannot see through him to his inside." He also tells me that he is in fear of his life and suspects that people may be putting a hex on him. Suicidal Thoughts: denies suicidal thoughts Homicidal Thoughts: denies homicidal thoughts Hallucinations: + auditory hallucinations When asked about auditory hallucinations, the patient hesitated and then said, "I guess I am not as honest about things as I should be." During the interview , it seemed pretty apparent that the patient was experiencing auditory hallucinations. For example, at one point, he turned to me and he said "you are right. I am not a good patient." I, of course, had not said that and I asked him if he had heard me say it and he said that he had. He also gave me several other examples of what he he believes he had heard me say. None were consistent with reality and can be taken is fairly reliable evidence of response to internal stimuli. Cognition: + recent memory not intact, + remote memory not intact and + attention not intact Estimated Intelligence: average estimated intelligence Insight: + severely impaired insight Judgement: + severely impaired judgement Vital Signs (Past 24 Hours) Last Vital Signs Temp 36.6 C 12/29/18 06:00 Pulse 85 12/29/18 07:08 Resp 16 12/29/18 06:00 BP 128/68 12/29/18 07:08 Results & Data Current Inpatient Medications Current Inpatient Medications: Current Inpatient Medications Acetaminophen (Tylenol) 650 mg PO Q4H PRN PRN Reason: Headache or Minor Fever Stop: 01/24/19 02:05 Last Admin: 12/27/18 15:41 Dose: 650 mg Al Hydrox/Mg Hydrox/Simethicone (Maalox) 30 ml PO Q4H PRN PRN Reason: GI Upset Stop: 01/24/19 02:05 Benztropine Mesylate (Cogentin) 1 mg PO Q4 PRN PRN Reason: EPS Stop: 01/24/19 02:10 Last Admin: 12/29/18 03:54 Dose: 1 mg Bismuth Subsalicylate (Kaopectate) 15 ml PO PRN PRN PRN Reason: Loose Stool Stop: 01/24/19 02:05 Divalproex Sodium (Depakote Extended Release) 1,000 mg PO HS LOKESH Stop: 01/24/19 21:59 Last Admin: 12/28/18 21:35 Dose: 1,000 mg Haloperidol (Haldol) 5 mg PO Q4 PRN PRN Reason: Agitation Stop: 01/24/19 02:08 Last Admin: 12/29/18 03:53 Dose: 5 mg Hydroxyzine HCl (Vistaril) 50 mg PO HSZ PRN PRN Reason: Insomnia Stop: 01/24/19 02:05 Last Admin: 12/28/18 23:09 Dose: 50 mg Hydroxyzine HCl (Vistaril) 25 mg PO Q4H PRN PRN Reason: Anxiety Stop: 01/24/19 02:05 Lorazepam (Ativan) 2 mg PO Q4 PRN PRN Reason: Anxiety Stop: 01/24/19 02:07 Last Admin: 12/29/18 03:53 Dose: 2 mg Magnesium Hydroxide (Milk Of Magnesia) 30 ml PO DAILY PRN PRN Reason: Heartburn Stop: 01/24/19 02:05 Miscellaneous (Remove Nicoderm Patch) 1 ea N/A DAILY@2100 [facility] Stop: 01/24/19 20:59 Last Admin: 12/28/18 21:35 Dose: Not Given Nicotine (Nicoderm Cq) 14 mg TD QAM LOKESH Stop: 01/24/19 08:59 Last Admin: 12/29/18 12:33 Dose: 14 mg Nicotine Polacrilex (Nicorette 2mg) 1 piece MT UD PRN PRN Reason: Nicotine Withdrawal Stop: 01/24/19 02:05 Last Admin: 12/28/18 10:01 Dose: 1 piece Paliperidone (Invega) 9 mg PO HS LOKESH Stop: 01/28/19 21:59 Sodium Chloride ([place] Nasal) 1 - 2 sprays NA PRN PRN PRN Reason: Nasal Dryness/Congestion Stop: 01/24/19 02:05 Trihexyphenidyl HCl (Artane) 2 mg PO BID LOKESH Stop: 01/27/19 20:59 Last Admin: 12/29/18 12:33 Dose: 2 mg Post Discharge Appointments Primary Care Physician Name Of Family Doctor: unknown Psychiatrist Name of Psychiatrist: [facility] Psychiatrist's Psychiatric Appointment Comment: [place], [address] Contact Information Contact Information Comment: [address] [place] [address] CPT Code CPT Code 53086
[2018-12-29] MEDS: PALIPERIDONE 3 MG TABCR PO SCH (20:26)
[2018-12-29] MEDS: DIVALPROEX EXTENDED RELEASE 500 MG TAB PO SCH (20:26)
[2018-12-30] MEDS: TRIHEXYPHENIDYL HCL 2 MG TAB PO SCH ×2 (08:33→20:57)
[2018-12-30] MEDS: NICOTINE 14 MG/24 HR PATCH TD SCH (08:38)
--- NOTE | 2018-12-30 15:41 | Psychiatric Progress Note ---
Date of Service December 30, 2018 Impression / Recommendations Impression Thoughts remain disorganized and delusional. He is compliant with the antipsychotic here so far and has received Haldol and Ativan as needed x2 again yesterday. He requires continued psychiatric hospitalization due to significant risk of harm to himself or others outside of a controlled environment. He is requesting transfer to a hospital near his home and, given history of lengthy hospitalization in the past, this may be something that should be explored moving forward. (1) Unspecified psychosis: 12/25 - Haldol 5 mg q 4 h prn psychosis until we obtain more information - Call father for additional supplemental information about past meds, psych providers and hospitalizations - Continue Depakote ER 100 mg HS with level in the AM - DC Seroquel - Q 15 min checks for safety - Excuse patient from groups today - Will need psychiatric aftercare - Safety planning - Patient doesn't know where his car is. Will need to clarify with [facility] police - Obtain records from [facility] 12/26 - Invega 3 mg HS increasing to 6 mg tomorrow - Consider Sustenna for improved compliance, but would like to see previous records to determine why Sustenna was stopped in the past. - Continue reality orientation, safety planning 12/27 - Collateral obtained from parents and outpatient psychiatric records reviewed, [facility]. - Continue paliperidone and increase to 6 mg daily. Fasting lipid profile and glucose ordered for tomorrow morning for monitoring on an atypical antipsychotic. - Parents coming this weekend from [place], will hold family meeting. 12/28 - Continue Invega 6 mg and if no limiting side effects, initiate Sustenna - Patient c/o some restlessnes and muscle sensations. Will order one time dose Artane 5 mg and if helpful will schedule. 12/29 -After interviewing this patient fairly extensively I note that he does appear to be somewhat depressed at times, but he clearly seems to meet criteria for schizophrenia. More specifically, there are prominent delusions and hallucinations, and clear evidence of a thought disorder characterized by highly disorganized thinking and loose associations. -The patient indicates that he feels that he is tolerating both valproic acid and an Boogie well, and notes no side effects. -I will increase his dose of that in Boogie to a dose of 9 mg at bedtime, beginning tonight. 12/30 -continue increased dose of Invega as well as continued utilization of Haldol and Ativan prns - family meeting today - reviewed fasting labs for baseline were wnl Inventory Assets Strengths: Willingness to engage in treatment Needs: To consistently be in psychiatric treatment Risk Factors Assessment Male: Yes : Yes Do You Have Access To A Gun?: No Health Problems: No Mental Health Diagnoses: Yes Substance Use Disorders: No Previous Attempt: No Family History of Suicide: Yes Previous Psychiatric Hospitalization: Yes Smoker: Yes Protective Factors Assessment : No Responsible for Young Children: No Employed: Yes Supportive Family: Yes Interval History Identifying Information 28 yo male from [place], admitted voluntarily on 12/25/18 on transfer from [place]. He had been found at a local store appearing confused. He has a long mental health hx, dx schizoaffective disorder, [facility]. Chief Complaint "I need to talk to the medical records assistant about getting transferred to the [facility] in [place]." Review of Systems Sleep Information Total Hours of Sleep: 7 Sleep Comments: pt on q-15 minute checks Meal Information Percent Meal Consumed - Breakfast: 100 Percent Meal Consumed - Lunch: 100 Percent Meal Consumed - Dinner: 100 Medication Trials Clozaril- side effects Sustenna Haldol- tremor risperdal- slowed zyprexa- weight gain Subjective Subjective Patient was seen & assessed and interval progress reviewed with treatment team. Intake it was increased to 9 mg yesterday. He has a family meeting scheduled with his parents today. He approaches me spontaneously today and asks to be transferred to the [facility] in [place] reporting that he has been treated there in the past. He is unable to articulate goal of treatment or transfer. I asked him to describe his circumstances and he states that he was driving and then stopped at hotels to drink and smoke cigarettes and got confused, could not make it, and ended up here. He expresses gratitude for being here however seems eager to leave at the same time. When asked about subjective response to the medication, invega, so far he states "I like it. I think it is a good pace. " He acknowledges anxiety but believes it is getting better. He denies thought racing. He acknowledges recent "visions" of a skull and spine in a hotel but denies that he is having hallucinations here. He also acknowledges recent auditory tones but again indicates that this is not active presently. He mentions x-ray vision and passing and makes comments about his body fat and believing that his bones in his skull are becoming more prominent. Medication Trials Clozaril- side effects Sustenna Haldol- tremor risperdal- slowed zyprexa- weight gain Physical Exam Psychiatric Orientation: alert and + guarded Apperance: appropriately dressed and appropriately groomed Eye Contact: + fair eye contact Motor Behavior: + psychomotor agitation Speech: no pressured speech (halting, several word utterances) Affect: + anxious affect and + irritable affect Mood: no depressed mood and no anxious mood Thought Process: + thought blocking; + thought process not linear or logical Thought Content: + delusions Suicidal Thoughts: denies suicidal thoughts Homicidal Thoughts: denies homicidal thoughts Hallucinations: no auditory hallucinations and no visual hallucinations Cognition: + recent memory not intact and + attention not intact Insight: + impaired insight Judgement: + impaired judgement Vital Signs (Past 24 Hours) Last Vital Signs Temp 36.5 C 12/30/18 07:00 Pulse 105 H 12/30/18 07:00 Resp 18 12/30/18 07:00 BP 109/67 12/30/18 07:00 Results & Data Current Inpatient Medications Current Inpatient Medications: Current Inpatient Medications Acetaminophen (Tylenol) 650 mg PO Q4H PRN PRN Reason: Headache or Minor Fever Stop: 01/24/19 02:05 Last Admin: 12/27/18 15:41 Dose: 650 mg Al Hydrox/Mg Hydrox/Simethicone (Maalox) 30 ml PO Q4H PRN PRN Reason: GI Upset Stop: 01/24/19 02:05 Benztropine Mesylate (Cogentin) 1 mg PO Q4 PRN PRN Reason: EPS Stop: 01/24/19 02:10 Last Admin: 12/29/18 20:29 Dose: 1 mg Bismuth Subsalicylate (Kaopectate) 15 ml PO PRN PRN PRN Reason: Loose Stool Stop: 01/24/19 02:05 Divalproex Sodium (Depakote Extended Release) 1,000 mg PO HS LOKESH Stop: 01/24/19 21:59 Last Admin: 12/29/18 20:26 Dose: 1,000 mg Haloperidol (Haldol) 5 mg PO Q4 PRN PRN Reason: Agitation Stop: 01/24/19 02:08 Last Admin: 12/29/18 20:29 Dose: 5 mg Hydroxyzine HCl (Vistaril) 50 mg PO HSZ PRN PRN Reason: Insomnia Stop: 01/24/19 02:05 Last Admin: 12/28/18 23:09 Dose: 50 mg Hydroxyzine HCl (Vistaril) 25 mg PO Q4H PRN PRN Reason: Anxiety Stop: 01/24/19 02:05 Lorazepam (Ativan) 2 mg PO Q4 PRN PRN Reason: Anxiety Stop: 01/24/19 02:07 Last Admin: 12/29/18 20:29 Dose: 2 mg Magnesium Hydroxide (Milk Of Magnesia) 30 ml PO DAILY PRN PRN Reason: Heartburn Stop: 01/24/19 02:05 Miscellaneous (Remove Nicoderm Patch) 1 ea N/A DAILY@2100 LOKESH Stop: 01/24/19 20:59 Last Admin: 12/29/18 20:27 Dose: Not Given Nicotine (Nicoderm Cq) 14 mg TD QAM LOKESH Stop: 01/24/19 08:59 Last Admin: 12/30/18 08:38 Dose: 14 mg Nicotine Polacrilex (Nicorette 2mg) 1 piece MT UD PRN PRN Reason: Nicotine Withdrawal Stop: 01/24/19 02:05 Last Admin: 12/28/18 10:01 Dose: 1 piece Paliperidone (Invega) 9 mg PO HS LOKESH Stop: 01/28/19 21:59 Last Admin: 12/29/18 20:26 Dose: 9 mg Sodium Chloride ([place] Nasal) 1 - 2 sprays NA PRN PRN PRN Reason: Nasal Dryness/Congestion Stop: 01/24/19 02:05 Trihexyphenidyl HCl (Artane) 2 mg PO BID LOKESH Stop: 01/27/19 20:59 Last Admin: 12/30/18 08:33 Dose: 2 mg Post Discharge Appointments Primary Care Physician Name Of Family Doctor: unknown Psychiatrist Name of Psychiatrist: [facility] Psychiatrist's Psychiatric Appointment Comment: [address] [place], [address] Contact Information Contact Information Comment: [address], [place] [address] CPT Code CPT Code 87016
[2018-12-30] MEDS: DIVALPROEX EXTENDED RELEASE 500 MG TAB PO SCH (20:57)
[2018-12-30] MEDS: PALIPERIDONE 3 MG TABCR PO SCH (20:58)
[2018-12-31] MEDS: TRIHEXYPHENIDYL HCL 2 MG TAB PO SCH ×2 (10:35→21:01)
[2018-12-31] MEDS: NICOTINE 14 MG/24 HR PATCH TD SCH (10:37)
--- NOTE | 2018-12-31 10:51 | Psychiatric Progress Note ---
Date of Service December 31, 2018 Impression / Recommendations Impression Behavior on unit suggests continued thought disorganization. He was restless with latent sleep last evening and did not receive any Haldol on 12/30/2018. Will likely ultimately require continued titration of the invega however it is too soon to increase that again yet. We are beginning to explore possibility of transfer to a facility in [place] closer to home given likelihood of lengthy hospitalization requirement and need for additional support services following hospitalization that we cannot set up for him out of state. (1) Unspecified psychosis: 12/25 - Haldol 5 mg q 4 h prn psychosis until we obtain more information - Call father for additional supplemental information about past meds, psych providers and hospitalizations - Continue Depakote ER 100 mg HS with level in the AM - DC Seroquel - Q 15 min checks for safety - Excuse patient from groups today - Will need psychiatric aftercare - Safety planning - Patient doesn't know where his car is. Will need to clarify with [facility] police - Obtain records from [place] hospitalization 12/26 - Invega 3 mg HS increasing to 6 mg tomorrow - Consider Sustenna for improved compliance, but would like to see previous records to determine why Sustenna was stopped in the past. - Continue reality orientation, safety planning 12/27 - Collateral obtained from parents and outpatient psychiatric records reviewed, awaiting [facility] records. - Continue paliperidone and increase to 6 mg daily. Fasting lipid profile and glucose ordered for tomorrow morning for monitoring on an atypical antipsychotic. - Parents coming this weekend from [place], will hold family meeting. 12/28 - Continue Invega 6 mg and if no limiting side effects, initiate Sustenna - Patient c/o some restlessnes and muscle sensations. Will order one time dose Artane 5 mg and if helpful will schedule. 12/29 -After interviewing this patient fairly extensively I note that he does appear to be somewhat depressed at times, but he clearly seems to meet criteria for schizophrenia. More specifically, there are prominent delusions and hallucinations, and clear evidence of a thought disorder characterized by highly disorganized thinking and loose associations. -The patient indicates that he feels that he is tolerating both valproic acid and an Boogie well, and notes no side effects. -I will increase his dose of that in Boogie to a dose of 9 mg at bedtime, beginning tonight. 12/30 -continue increased dose of Invega as well as continued utilization of Haldol and Ativan prns - family meeting today - reviewed fasting labs for baseline were wnl 12/31 -remains disorganized -Continue medication regimen with plan to titrate invega as appropriate -will consider standing at bedtime Haldol and Ativan if he appears more agitated today after not receiving the prn medication yesterday Inventory Assets Strengths: Willingness to engage in treatment Needs: To consistently be in psychiatric treatment Risk Factors Assessment Male: Yes : Yes Do You Have Access To A Gun?: No Health Problems: No Mental Health Diagnoses: Yes Substance Use Disorders: No Previous Attempt: No Family History of Suicide: Yes Previous Psychiatric Hospitalization: Yes Smoker: Yes Protective Factors Assessment : No Responsible for Young Children: No Employed: Yes Supportive Family: Yes Interval History Identifying Information 28 yo male from [place], admitted voluntarily on 12/25/18 on transfer from [place]. He had been found at a local store appearing confused. He has a long mental health hx, dx schizoaffective disorder, having been in the [facility] for a year. Chief Complaint "I am tired". Review of Systems Notes Denies physical complaints Sleep Information Total Hours of Sleep: 4 Meal Information Percent Meal Consumed - Breakfast: 100 Percent Meal Consumed - Lunch: 100 Percent Meal Consumed - Dinner: 100 Medication Trials Clozaril- side effects Sustenna Haldol- tremor risperdal- slowed zyprexa- weight gain Subjective Subjective Patient was seen & assessed and interval progress reviewed with treatment team. Nursing report indicates some bizarre behaviors in the kitchen last evening. As example, he made a concoction of grape jelly, a tea bag, and ice water to drink. He was also observed opening a yogurt, dumping the contents directly into the trash can, and then shrugging in a disorganized manner. He did not receive any of the Haldol or Ativan prn's on the . He is minimally participatory in interview this morning appearing drowsy laying in bed. I am told that his sleep patterns are irregular. 4 hours of recorded sleep last night. He appeared restless with pacing in the late evening. Medication Trials Clozaril- side effects Sustenna Haldol- tremor risperdal- slowed zyprexa- weight gain Physical Exam Psychiatric Drowsy Apperance: + disheveled Eye Contact: + poor eye contact Motor Behavior: + psychomotor retardation Speech: no loud speech Speech is soft and minimal this morning Affect: + flat affect "Fine" Thought process appears slowed associated with level of alertness. Answers to questions are brief and concrete Patient does not spontaneously evidence specific delusional thought content at time of interview Hallucinations: + auditory hallucinations and + visual hallucinations Cognition: + attention not intact Insight: + impaired insight Judgement: + impaired judgement Vital Signs (Past 24 Hours) Last Vital Signs Temp 36.5 C 12/31/18 06:57 Pulse 76 12/31/18 06:57 Resp 16 12/31/18 06:57 BP 100/60 12/31/18 06:57 Results & Data Current Inpatient Medications Current Inpatient Medications: Current Inpatient Medications Acetaminophen (Tylenol) 650 mg PO Q4H PRN PRN Reason: Headache or Minor Fever Stop: 01/24/19 02:05 Last Admin: 12/27/18 15:41 Dose: 650 mg Al Hydrox/Mg Hydrox/Simethicone (Maalox) 30 ml PO Q4H PRN PRN Reason: GI Upset Stop: 01/24/19 02:05 Benztropine Mesylate (Cogentin) 1 mg PO Q4 PRN PRN Reason: EPS Stop: 01/24/19 02:10 Last Admin: 12/29/18 20:29 Dose: 1 mg Bismuth Subsalicylate (Kaopectate) 15 ml PO PRN PRN PRN Reason: Loose Stool Stop: 01/24/19 02:05 Divalproex Sodium (Depakote Extended Release) 1,000 mg PO HS LOKESH Stop: 01/24/19 21:59 Last Admin: 12/30/18 20:57 Dose: 1,000 mg Haloperidol (Haldol) 5 mg PO Q4 PRN PRN Reason: Agitation Stop: 01/24/19 02:08 Last Admin: 12/29/18 20:29 Dose: 5 mg Hydroxyzine HCl (Vistaril) 50 mg PO HSZ PRN PRN Reason: Insomnia Stop: 01/24/19 02:05 Last Admin: 12/31/18 01:16 Dose: 50 mg Hydroxyzine HCl (Vistaril) 25 mg PO Q4H PRN PRN Reason: Anxiety Stop: 01/24/19 02:05 Lorazepam (Ativan) 2 mg PO Q4 PRN PRN Reason: Anxiety Stop: 01/24/19 02:07 Last Admin: 12/29/18 20:29 Dose: 2 mg Magnesium Hydroxide (Milk Of Magnesia) 30 ml PO DAILY PRN PRN Reason: Heartburn Stop: 01/24/19 02:05 Miscellaneous (Remove Nicoderm Patch) 1 ea N/A DAILY@2100 LOKESH Stop: 01/24/19 20:59 Last Admin: 12/30/18 21:00 Dose: 1 ea Nicotine (Nicoderm Cq) 14 mg TD QAM LOKESH Stop: 01/24/19 08:59 Last Admin: 12/31/18 10:37 Dose: 14 mg Nicotine Polacrilex (Nicorette 2mg) 1 piece MT UD PRN PRN Reason: Nicotine Withdrawal Stop: 01/24/19 02:05 Last Admin: 12/28/18 10:01 Dose: 1 piece Paliperidone (Invega) 9 mg PO HS LOKESH Stop: 01/28/19 21:59 Last Admin: 12/30/18 20:58 Dose: 9 mg Sodium Chloride ([place] Nasal) 1 - 2 sprays NA PRN PRN PRN Reason: Nasal Dryness/Congestion Stop: 01/24/19 02:05 Trihexyphenidyl HCl (Artane) 2 mg PO BID LOKESH Stop: 01/27/19 20:59 Last Admin: 12/31/18 10:35 Dose: 2 mg Post Discharge Appointments Primary Care Physician Name Of Family Doctor: unknown Psychiatrist Name of Psychiatrist: [facility] Psychiatrist's Psychiatric Appointment Comment: [place], [id number] Contact Information Contact Information Comment: [address], [place] [address] CPT Code CPT Code 52924
[2018-12-31] MEDS: PALIPERIDONE 3 MG TABCR PO SCH (11:52)
[2018-12-31] MEDS: HALOPERIDOL 5 MG TAB PO SCH (21:01)
[2018-12-31] MEDS: LORazepam 2 MG TAB PO SCH (21:01)
[2018-12-31] MEDS: DIVALPROEX EXTENDED RELEASE 500 MG TAB PO SCH (21:01)
[2018-12-31] MEDS: BENZTROPINE MESYLATE 1 MG TAB PO PRN (21:01)
--- NOTE | 2019-01-01 09:39 | Psychiatric Progress Note ---
Date of Service January 01, 2019 Impression / Recommendations Impression Behavior controlled overnight, tired today. Will continue to explore option to transfer patient closer to home to continue his treatment given that he has required jail inpatient care in the past. Will continue current meds for now. (1) Unspecified psychosis: 12/25 - Haldol 5 mg q 4 h prn psychosis until we obtain more information - Call father for additional supplemental information about past meds, psych providers and hospitalizations - Continue Depakote ER 100 mg HS with level in the AM - DC Seroquel - Q 15 min checks for safety - Excuse patient from groups today - Will need psychiatric aftercare - Safety planning - Patient doesn't know where his car is. Will need to clarify with [facility] police - Obtain records from [place] hospitalization 12/26 - Invega 3 mg HS increasing to 6 mg tomorrow - Consider Sustenna for improved compliance, but would like to see previous records to determine why Sustenna was stopped in the past. - Continue reality orientation, safety planning 12/27 - Collateral obtained from parents and outpatient psychiatric records reviewed, awaiting [facility] records. - Continue paliperidone and increase to 6 mg daily. Fasting lipid profile and glucose ordered for tomorrow morning for monitoring on an atypical antipsychotic. - Parents coming this weekend from [place], will hold family meeting. 12/28 - Continue Invega 6 mg and if no limiting side effects, initiate Sustenna - Patient c/o some restlessnes and muscle sensations. Will order one time dose Artane 5 mg and if helpful will schedule. 12/29 -After interviewing this patient fairly extensively I note that he does appear to be somewhat depressed at times, but he clearly seems to meet criteria for schizophrenia. More specifically, there are prominent delusions and hallucinations, and clear evidence of a thought disorder characterized by highly disorganized thinking and loose associations. -The patient indicates that he feels that he is tolerating both valproic acid and an Boogie well, and notes no side effects. -I will increase his dose of that in Boogie to a dose of 9 mg at bedtime, beginning tonight. 12/30 -continue increased dose of Invega as well as continued utilization of Haldol and Ativan prns - family meeting today - reviewed fasting labs for baseline were wnl 12/31 -remains disorganized -Continue medication regimen with plan to titrate invega as appropriate -will consider standing at bedtime Haldol and Ativan if he appears more agitated today after not receiving the prn medication yesterday 01/01 - Continue current meds - Explore options for continued treatment at a hospital closer to home in [place]. Inventory Assets Strengths: Willingness to engage in treatment Needs: To consistently be in psychiatric treatment Risk Factors Assessment Male: Yes : Yes Do You Have Access To A Gun?: No Health Problems: No Mental Health Diagnoses: Yes Substance Use Disorders: No Previous Attempt: No Family History of Suicide: Yes Previous Psychiatric Hospitalization: Yes Smoker: Yes Protective Factors Assessment : No Responsible for Young Children: No Employed: Yes Supportive Family: Yes Interval History Identifying Information 28 yo male from [place], admitted voluntarily on 12/25/18 on transfer from [place]. He had been found at a local store appearing confused. He has a long mental health hx, dx schizoaffective disorder, having been in the [facility] a year. Chief Complaint "OK I guess.". Review of Systems Sleep Information Total Hours of Sleep: 6.5 Sleep Comments: pt on q-15 minute checks Meal Information Percent Meal Consumed - Breakfast: 100 Percent Meal Consumed - Lunch: 100 Percent Meal Consumed - Dinner: 100 Nutrition Comment: per meal record Medication Trials Clozaril- side effects Sustenna Haldol- tremor risperdal- slowed zyprexa- weight gain Subjective Subjective Patient was seen & assessed and interval progress reviewed with Treatment Team. The patient is in bed at the time of the interview sayinghe is tired. He says that his weekend was "OK" but had one episode during which he felt agitated , but was able to calm himself with breathing exercises. He denies having any more aud hallucinations, but said that he was "terrified" during a visit with his parents because they don't want him to return to their home. He thinks his parents is the right place to be, but understands their concerns. We talk about the possibility of transferring to a hospital closer to home to complete his treatment and he thinks that this idea is "awsome". He admits to feeling depressed and having suicidal thoughts because he is not near home and has no contact with family and friends because of it. He denies HI. Summary of Past History 12/26/18 History from father. Patient's first hospitalization was at age 18 after a concussion. Jose saw a head injury specialist in [place] and was diagnosed with post concussive syndrome. He has had multiple hospitalizations over the years, diagnosis schizoaffective disorder, and was in [facility] for a year having been discharged about a year ago. He was discharged on court ordered medications and that order in fall 2017. The patient has a history of some aggressive behaviors including pushing people and hitting things and father was concerned about him being around other patients. He has been on multiple meds in the past, some of which include: haldol which caused him tremors, Clozaril to which he had side effects, and Sustenna. He currently lives with his parents in [place] and recieves his mental health care through [facility] in [facility]. Father said that the patient had been at his new job for only 1 day, but felt that he didn't belong there. Father may come to visit this weekend. Medication Trials Clozaril- side effects Sustenna Haldol- tremor risperdal- slowed zyprexa- weight gain Physical Exam Psychiatric Orientation: oriented x 3 and cooperative Apperance: appropriately dressed and appropriately groomed Eye Contact: + fair eye contact (tired, eyes close at times) Motor Behavior: no abnormal motor movements quiet, garbled Affect: + flat affect Mood: + depressed mood Thought Process: goal directed thought process Suicidal Thoughts: denies suicidal plan and denies suicidal intent; + reports suicidal thoughts Homicidal Thoughts: denies homicidal thoughts Hallucinations: no auditory hallucinations and no visual hallucinations Cognition: recent memory grossly intact, remote memory grossly intact, attention grossly intact and language grossly intact Estimated Intelligence: average estimated intelligence Insight: + impaired insight Judgement: + impaired judgement Vital Signs (Past 24 Hours) Last Vital Signs Temp 36.6 C 01/01/19 06:50 Pulse 58 L 01/01/19 06:50 Resp 16 01/01/19 06:50 BP 105/61 01/01/19 06:50 Results & Data Current Inpatient Medications Current Inpatient Medications: Current Inpatient Medications Acetaminophen (Tylenol) 650 mg PO Q4H PRN PRN Reason: Headache or Minor Fever Stop: 01/24/19 02:05 Last Admin: 12/27/18 15:41 Dose: 650 mg Al Hydrox/Mg Hydrox/Simethicone (Maalox) 30 ml PO Q4H PRN PRN Reason: GI Upset Stop: 01/24/19 02:05 Benztropine Mesylate (Cogentin) 1 mg PO Q4 PRN PRN Reason: EPS Stop: 01/24/19 02:10 Last Admin: 12/31/18 21:01 Dose: 1 mg Bismuth Subsalicylate (Kaopectate) 15 ml PO PRN PRN PRN Reason: Loose Stool Stop: 01/24/19 02:05 Divalproex Sodium (Depakote Extended Release) 1,000 mg PO [facility] Stop: 01/24/19 21:59 Last Admin: 12/31/18 21:01 Dose: 1,000 mg Haloperidol (Haldol) 5 mg PO Q4 PRN PRN Reason: Agitation Stop: 01/24/19 02:08 Last Admin: 12/29/18 20:29 Dose: 5 mg Haloperidol (Haldol) 5 mg PO [facility] Stop: 01/30/19 21:59 Last Admin: 12/31/18 21:01 Dose: 5 mg Hydroxyzine HCl (Vistaril) 50 mg PO HSZ PRN PRN Reason: Insomnia Stop: 01/24/19 02:05 Last Admin: 12/31/18 01:16 Dose: 50 mg Hydroxyzine HCl (Vistaril) 25 mg PO Q4H PRN PRN Reason: Anxiety Stop: 01/24/19 02:05 Lorazepam (Ativan) 2 mg PO Q4 PRN PRN Reason: Anxiety Stop: 01/24/19 02:07 Last Admin: 12/29/18 20:29 Dose: 2 mg Lorazepam (Ativan) 2 mg PO [facility] Stop: 01/30/19 21:59 Last Admin: 12/31/18 21:01 Dose: 2 mg Magnesium Hydroxide (Milk Of Magnesia) 30 ml PO DAILY PRN PRN Reason: Heartburn Stop: 01/24/19 02:05 Miscellaneous (Remove Nicoderm Patch) 1 ea N/A DAILY@2100 [facility] Stop: 01/24/19 20:59 Last Admin: 12/31/18 21:06 Dose: Not Given Nicotine (Nicoderm Cq) 14 mg TD QAM [facility] Stop: 01/24/19 08:59 Last Admin: 12/31/18 10:37 Dose: 14 mg Nicotine Polacrilex (Nicorette 2mg) 1 piece MT UD PRN PRN Reason: Nicotine Withdrawal Stop: 01/24/19 02:05 Last Admin: 12/28/18 10:01 Dose: 1 piece Paliperidone (Invega) 9 mg PO DAILY LOKESH Stop: 01/30/19 11:44 Last Admin: 12/31/18 11:52 Dose: 9 mg Sodium Chloride ([place] Nasal) 1 - 2 sprays NA PRN PRN PRN Reason: Nasal Dryness/Congestion Stop: 01/24/19 02:05 Trihexyphenidyl HCl (Artane) 2 mg PO BID LOKESH Stop: 01/27/19 20:59 Last Admin: 12/31/18 21:01 Dose: 2 mg Post Discharge Appointments Primary Care Physician Name Of Family Doctor: unknown Psychiatrist Name of Psychiatrist: [facility] Psychiatrist's Psychiatric Appointment Comment: [address] [place], [address] Contact Information Contact Information Comment: [address], [place] [address] CPT Code CPT Code 51537
[2019-01-01] MEDS: TRIHEXYPHENIDYL HCL 2 MG TAB PO SCH ×2 (09:41→21:14)
[2019-01-01] MEDS: PALIPERIDONE 3 MG TABCR PO SCH (09:41)
[2019-01-01] MEDS: NICOTINE 14 MG/24 HR PATCH TD SCH (09:41)
--- NOTE | 2019-01-01 11:22 | Medical Student Progress Note ---
Date of Service January 01, 2019 Assessment & Plan (1) Unspecified psychosis: This is a 28-year-old man with a history of unspecific psychotic disorder who was taken to an emergency department in [place] for being found acting strangely in a store and was transferred to [facility] for psychiatric care. Jose continues to exhibit psychotic behavior such as talking to himself, laughing inappropriately, and highly disorganized thought processes. 1. Unspecified psychotic disorder - Speech is becoming more fluent, making better eye contact. Thoughts still disorganized. - Continue Depakote ER 1000 mg qHS. - Continue paliperidone 9 mg. Goal is to transition to IM therapy as he is noncompliant with his medications. - Continue haloperidol 5mg qHS. - Begin trihexyphenidyl 2 mg BID for restlessness. Offer benztropine 1 mg q4 PRN for EPS. - Encourage group therapy and activities. - Fasting lipid panel and blood glucose are WNL. - Q15 safety checks. 2. Nicotine Dependence - Continue 14 mg nicotine patch qAM. 3. Sleep Disturbance - Continue lorazepam 2 mg qHS. 4. Disposition - Jose continues to have disorganized thoughts and speech. - Continue inpatient hospitalization until meds are optimized and outpatient care coordinated. - Coordinate transfer to hospital closer to support system. Subjective This is a 28-year-old man with a history of unspecific psychotic disorder who was taken to an emergency department in [place] for being found acting strangely in a store and was transferred to [facility] for psychiatric care. Jose says he is doing better today in that he feels more "balanced." His mood is a 5/ 10 and "nice." He says he is improving in his ability to pay attention in groups. He also says he benefits from reading the pamphlets and booklets because it helps him be more "social and understanding." He shares that he worries that other patients are complaining about him. His sleep and appetite are both good. He thinks that moving to a hospital closer to home is a good idea. He says that he is still confused at times in that it's difficult to express himself. Physical Exam 2 Vital Signs (Past 24 Hours): Last Vital Signs Temp 36.6 C 01/01/19 06:50 Pulse 58 L 01/01/19 06:50 Resp 16 01/01/19 06:50 BP 105/61 01/01/19 06:50 Psychiatric: Orientation: alert, oriented to person, oriented to place ( Oriented to [facility], but did not know [place]) and oriented to time (Knows December, but not ) Apperance: appropriately dressed and appropriately groomed Eye Contact: + fair eye contact Motor Behavior: no abnormal motor movements Speech: normal rate/rhythm/volume of speech Affect: + blunted affect Thought Process: + tangential thought process and + looseness of associations Suicidal Thoughts: denies suicidal thoughts Homicidal Thoughts: denies homicidal thoughts Hallucinations: no auditory hallucinations and no visual hallucinations Cognition: attention grossly intact Estimated Intelligence: average estimated intelligence Insight: + poor insight Judgement: + limited judgement Results & Data Medications Administered Acetaminophen (Tylenol) 650 mg PO Q4H PRN PRN Reason: Headache or Minor Fever Stop: 01/24/19 02:05 Last Admin: 12/27/18 15:41 Dose: 650 mg Benztropine Mesylate (Cogentin) 1 mg PO Q4 PRN PRN Reason: EPS Stop: 01/24/19 02:10 Last Admin: 12/31/18 21:01 Dose: 1 mg Admin: 12/29/18 20:29 Dose: 1 mg Admin: 12/29/18 03:54 Dose: 1 mg Admin: 12/27/18 19:01 Dose: 1 mg Admin: 12/25/18 16:26 Dose: 1 mg Divalproex Sodium (Depakote Extended Release) 1,000 mg PO HS LOKESH Stop: 01/24/19 21:59 Last Admin: 12/31/18 21:01 Dose: 1,000 mg Admin: 12/30/18 20:57 Dose: 1,000 mg Admin: 12/29/18 20:26 Dose: 1,000 mg Admin: 12/28/18 21:35 Dose: 1,000 mg Admin: 12/27/18 21:09 Dose: 1,000 mg Admin: 12/26/18 20:56 Dose: 1,000 mg Admin: 12/25/18 21:04 Dose: 1,000 mg Haloperidol (Haldol) 5 mg PO Q4 PRN PRN Reason: Agitation Stop: 01/24/19 02:08 Last Admin: 12/29/18 20:29 Dose: 5 mg Admin: 12/29/18 03:53 Dose: 5 mg Admin: 12/27/18 19:01 Dose: 5 mg Admin: 12/27/18 14:19 Dose: 5 mg Admin: 12/25/18 16:26 Dose: 5 mg Admin: 12/25/18 11:54 Dose: 5 mg Haloperidol (Haldol) 5 mg PO HS LOKESH Stop: 01/30/19 21:59 Last Admin: 12/31/18 21:01 Dose: 5 mg Hydroxyzine HCl (Vistaril) 50 mg PO HSZ PRN PRN Reason: Insomnia Stop: 01/24/19 02:05 Last Admin: 12/31/18 01:16 Dose: 50 mg Admin: 12/28/18 23:09 Dose: 50 mg Admin: 12/27/18 01:49 Dose: 50 mg Lorazepam (Ativan) 2 mg PO Q4 PRN PRN Reason: Anxiety Stop: 01/24/19 02:07 Last Admin: 12/29/18 20:29 Dose: 2 mg Admin: 12/29/18 03:53 Dose: 2 mg Admin: 12/27/18 19:01 Dose: 2 mg Admin: 12/25/18 16:26 Dose: 2 mg Lorazepam (Ativan) 2 mg PO HS LOKESH Stop: 01/30/19 21:59 Last Admin: 12/31/18 21:01 Dose: 2 mg Miscellaneous (Remove Nicoderm Patch) 1 ea N/A DAILY@2100 LOKESH Stop: 01/24/19 20:59 Last Admin: 12/31/18 21:06 Dose: Not Given Admin: 12/30/18 21:00 Dose: 1 ea Admin: 12/29/18 20:27 Dose: Not Given Admin: 12/28/18 21:35 Dose: Not Given Admin: 12/27/18 21:09 Dose: Not Given Admin: 12/26/18 20:57 Dose: Not Given Admin: 12/25/18 21:07 Dose: Not Given Nicotine (Nicoderm Cq) 14 mg TD QAM LOKESH Stop: 01/24/19 08:59 Last Admin: 01/01/19 09:41 Dose: 14 mg Admin: 12/31/18 10:37 Dose: 14 mg Admin: 12/30/18 08:38 Dose: 14 mg Admin: 12/29/18 12:33 Dose: 14 mg Admin: 12/28/18 09:18 Dose: 14 mg Admin: 12/27/18 13:22 Dose: 14 mg Admin: 12/26/18 20:14 Dose: 14 mg Admin: 12/26/18 09:20 Dose: Not Given Admin: 12/25/18 10:50 Dose: 14 mg Nicotine Polacrilex (Nicorette 2mg) 1 piece MT UD PRN PRN Reason: Nicotine Withdrawal Stop: 01/24/19 02:05 Last Admin: 12/28/18 10:01 Dose: 1 piece Paliperidone (Invega) 9 mg PO DAILY LOKESH Stop: 01/30/19 11:44 Last Admin: 01/01/19 09:41 Dose: 9 mg Admin: 12/31/18 11:52 Dose: 9 mg Trihexyphenidyl HCl (Artane) 2 mg PO BID LOKESH Stop: 01/27/19 20:59 Last Admin: 01/01/19 09:41 Dose: 2 mg Admin: 12/31/18 21:01 Dose: 2 mg Admin: 12/31/18 10:35 Dose: 2 mg Admin: 12/30/18 20:57 Dose: 2 mg Admin: 12/30/18 08:33 Dose: 2 mg Admin: 12/29/18 20:26 Dose: 2 mg Admin: 12/29/18 12:33 Dose: 2 mg Admin: 12/28/18 21:35 Dose: 2 mg
[2019-01-01] MEDS: LORazepam 2 MG TAB PO SCH (21:14)
[2019-01-01] MEDS: DIVALPROEX EXTENDED RELEASE 500 MG TAB PO SCH (21:14)
[2019-01-01] MEDS: HALOPERIDOL 5 MG TAB PO SCH (21:15)
--- NOTE | 2019-01-02 09:50 | Psychiatric Progress Note ---
Date of Service January 02, 2019 Impression / Recommendations Impression The patient has been in good behavioral control, and consistently denying positive symptoms of psychosis and thoughts of harming himself or others. He continues to have disorganized thoughts at times, and appears thought blocked. Attempts to transfer him to a [place] hospital so that he can receive treatment close to his family and with better coordination of care with his outpatient providers have been unsuccessful. We will therefore start working on discharge plans, and will coordinate with his parents as they are familiar with the services he has used in [place] in the past (1) Unspecified psychosis: 12/25 - Haldol 5 mg q 4 h prn psychosis until we obtain more information - Call father for additional supplemental information about past meds, psych providers and hospitalizations - Continue Depakote ER 100 mg HS with level in the AM - DC Seroquel - Q 15 min checks for safety - Excuse patient from groups today - Will need psychiatric aftercare - Safety planning - Patient doesn't know where his car is. Will need to clarify with [facility] police - Obtain records from [facility] 12/26 - Invega 3 mg HS increasing to 6 mg tomorrow - Consider Sustenna for improved compliance, but would like to see previous records to determine why Sustenna was stopped in the past. - Continue reality orientation, safety planning 12/27 - Collateral obtained from parents and outpatient psychiatric records reviewed, awaiting [facility] records. - Continue paliperidone and increase to 6 mg daily. Fasting lipid profile and glucose ordered for tomorrow morning for monitoring on an atypical antipsychotic. - Parents coming this weekend from [place], will hold family meeting. 12/28 - Continue Invega 6 mg and if no limiting side effects, initiate Sustenna - Patient c/o some restlessnes and muscle sensations. Will order one time dose Artane 5 mg and if helpful will schedule. 12/29 -After interviewing this patient fairly extensively I note that he does appear to be somewhat depressed at times, but he clearly seems to meet criteria for schizophrenia. More specifically, there are prominent delusions and hallucinations, and clear evidence of a thought disorder characterized by highly disorganized thinking and loose associations. -The patient indicates that he feels that he is tolerating both valproic acid and Invega well, and notes no side effects. -I will increase his dose of that Invega to a dose of 9 mg at bedtime, beginning tonight. 12/30 -continue increased dose of Invega as well as continued utilization of Haldol and Ativan prns - family meeting today - reviewed fasting labs for baseline were wnl 12/31 -remains disorganized -Continue medication regimen with plan to titrate invega as appropriate -will consider standing at bedtime Haldol and Ativan if he appears more agitated today after not receiving the prn medication yesterday 01/01 - Continue current meds. Explore options for continued treatment at a hospital closer to home in [place]. 01/02 -No accepting facilities in [place] for ongoing inpatient treatment. Will start working on discharge plans. Continue current medications, and reduce lorazepam from 2 mg at bedtime to 1 mg at bedtime to try to limit a.m. sedation. Inventory Assets Strengths: Willingness to engage in treatment Needs: To consistently be in psychiatric treatment Risk Factors Assessment Male: Yes : Yes Do You Have Access To A Gun?: No Health Problems: No Mental Health Diagnoses: Yes Substance Use Disorders: No Previous Attempt: No Family History of Suicide: Yes Previous Psychiatric Hospitalization: Yes Smoker: Yes Protective Factors Assessment : No Responsible for Young Children: No Employed: Yes Supportive Family: Yes Interval History Identifying Information 28 yo male from [place], admitted voluntarily on 12/25/18 on transfer from [place], after he had traveled out of [facility] and was confused. He has a long mental health history, diagnosed with schizoaffective disorder, and multiple hospitalizations including long-term treatment at the [facility]. Chief Complaint "Okay". Review of Systems Notes Denies headaches, muscle stiffness, tremor, GI symptoms. Sleep Information Total Hours of Sleep: 7.25 Sleep Comments: pt on q-15 minute checks Meal Information Percent Meal Consumed - Breakfast: 100 Percent Meal Consumed - Lunch: 100 Percent Meal Consumed - Dinner: 100 Nutrition Comment: per meal record Medication Trials Clozaril- side effects Sustenna -most effective medication per parents Haldol- tremor risperdal- slowed zyprexa- weight gain Subjective Subjective Patient was seen & assessed and interval progress reviewed with Nursing and social work. Staff report he has had minimal group participation, but has been in good behavioral control. He has been taking medications as prescribed. A referral was made to his local hospital in [place] at the patient and parents request, but he was not accepted. His parents visited over the weekend and met with staff, and reported that the patient had done better with respect to medication compliance when he was on an involuntary outpatient commitment in the past, which cannot be initiated here as he is out of state. They also reported that he has had many medication trials, most of which were ineffective , and that Invega was the most beneficial medication. On my assessment, the patient was seen in his room, where he was in bed wearing only underwear, and would not get up, get dressed, and come to the interview room, stating he was tired. He appears thought blocked, with latency in responses, at times not responding at all. He describes his mood is "dragged out," and cannot explain that further when asked. He denies hallucinations, thoughts of harming himself , and thoughts of harming anyone else. He plans to spend his time "just sleeping a lot." Discussed discharge planning, and he would like "some kind of outpatient program or something, go back to my job, get an apartment." He is in agreement with his estimated length of stay, with projected discharge this weekend and return to [place] with parents. He is resistant to suggestions that he be out of bed during the day and try to be more involved in treatment programming. Summary of Past History Records reviewed from [facility]: Discharge summary (admission date 05/15/2018 -discharge date 09/12/2018). He had been living at a [facility] rehab facility, reported a history of multiple head injuries from football, alcohol abuse, mood instability, and paranoia. He was referred to the [facility] from [facility] of mental health, after he walked into their clinic in February 2018 with his heel caser from [employer], as he was living locally at the rehab facility. He was on an AOT, and reported history of heather for which she had been hospitalized multiple times, as well as a history of depression, but was a poor historian. He also reported a history of delusional thinking. His first hospitalization was in 2007 at age 18 for a "nervous breakdown" in the context of academic and relationship stressors. He was hospitalized at [facility] for about 2 weeks, and has had 7 additional hospitalizations since that time. Most of his hospitalizations were due to aggressive behavior and psychosis or heather. He had been on Depakote since age 18 and tolerated it well, but had failed multiple antipsychotic trials due to side effects. He was on clozapine at the time and reported morning sedation from it. He started drinking in ninth grade, and became a heavy alcohol user during his nadir year of high school. He also reported a history of cannabis, cocaine, and mushroom use. He was ambivalent about stopping alcohol and cigarette use. He reported a history of multiple head injuries while playing football in high school, he denied loss of consciousness. He was diagnosed with schizoaffective disorder bipolar type, and rule out mood and psychotic disorder due to TBI. He was seen only twice in the program, as he only stayed at the rehab facility for 1 month, if he did not participate in the program. His parents then took him to multiple shelters in [place], but they would not accept him, so they took him home. He was then transferred back to [facility] clinic. Medication Trials Clozaril- side effects Sustenna Haldol- tremor risperdal- slowed zyprexa- weight gain Physical Exam Mental Examination Well-nourished well-developed white male appearing his stated age. Lying in bed in no acute distress, wearing nothing but underwear. He does cover up with a blanket with his physician in the room, but admits to getting up, getting dressed, and coming to the interview room. Eye contact is poor with only partial cooperation with the assessment. No abnormal movements. Mood is "dragged out," and affect is flat. Speech is soft, slowed, with significant delays prior to answering, sometimes not responding at all. Thoughts are goal- directed but vague. + Thought blocking and paucity of thought content. Denies SI, HI, hallucinations, and paranoia. No delusions expressed. Alert and oriented x3. Insight and judgment are impaired. Vital Signs (Past 24 Hours) Last Vital Signs Temp 36.7 C 01/02/19 06:45 Pulse 97 H 01/02/19 06:46 Resp 16 01/02/19 06:45 BP 137/66 01/02/19 06:46 Results & Data Current Inpatient Medications Current Inpatient Medications: Current Inpatient Medications Acetaminophen (Tylenol) 650 mg PO Q4H PRN PRN Reason: Headache or Minor Fever Stop: 01/24/19 02:05 Last Admin: 12/27/18 15:41 Dose: 650 mg Al Hydrox/Mg Hydrox/Simethicone (Maalox) 30 ml PO Q4H PRN PRN Reason: GI Upset Stop: 01/24/19 02:05 Benztropine Mesylate (Cogentin) 1 mg PO Q4 PRN PRN Reason: EPS Stop: 01/24/19 02:10 Last Admin: 12/31/18 21:01 Dose: 1 mg Bismuth Subsalicylate (Kaopectate) 15 ml PO PRN PRN PRN Reason: Loose Stool Stop: 01/24/19 02:05 Divalproex Sodium (Depakote Extended Release) 1,000 mg PO HS [facility]OK[facility] Stop: 01/24/19 21:59 Last Admin: 01/01/19 21:14 Dose: 1,000 mg Haloperidol (Haldol) 5 mg PO Q4 PRN PRN Reason: Agitation Stop: 01/24/19 02:08 Last Admin: 12/29/18 20:29 Dose: 5 mg Haloperidol (Haldol) 5 mg PO HS [facility] Stop: 01/30/19 21:59 Last Admin: 01/01/19 21:15 Dose: 5 mg Hydroxyzine HCl (Vistaril) 50 mg PO HSZ PRN PRN Reason: Insomnia Stop: 01/24/19 02:05 Last Admin: 12/31/18 01:16 Dose: 50 mg Hydroxyzine HCl (Vistaril) 25 mg PO Q4H PRN PRN Reason: Anxiety Stop: 01/24/19 02:05 Lorazepam (Ativan) 2 mg PO Q4 PRN PRN Reason: Anxiety Stop: 01/24/19 02:07 Last Admin: 12/29/18 20:29 Dose: 2 mg Lorazepam (Ativan) 2 mg PO HS [facility] Stop: 01/30/19 21:59 Last Admin: 01/01/19 21:14 Dose: 2 mg Magnesium Hydroxide (Milk Of Magnesia) 30 ml PO DAILY PRN PRN Reason: Heartburn Stop: 01/24/19 02:05 Miscellaneous (Remove Nicoderm Patch) 1 ea N/A DAILY@2100 [facility] Stop: 01/24/19 20:59 Last Admin: 01/01/19 21:17 Dose: Not Given Nicotine (Nicoderm Cq) 14 mg TD QAM [facility] Stop: 01/24/19 08:59 Last Admin: 01/01/19 09:41 Dose: 14 mg Nicotine Polacrilex (Nicorette 2mg) 1 piece MT UD PRN PRN Reason: Nicotine Withdrawal Stop: 01/24/19 02:05 Last Admin: 12/28/18 10:01 Dose: 1 piece Paliperidone (Invega) 9 mg PO DAILY [facility] Stop: 01/30/19 11:44 Last Admin: 01/01/19 09:41 Dose: 9 mg Sodium Chloride (Mccurtain Nasal) 1 - 2 sprays NA PRN PRN PRN Reason: Nasal Dryness/Congestion Stop: 01/24/19 02:05 Trihexyphenidyl HCl (Artane) 2 mg PO BID LOKESH Stop: 01/27/19 20:59 Last Admin: 01/01/19 21:14 Dose: 2 mg Post Discharge Appointments Primary Care Physician Name Of Family Doctor: unknown Psychiatrist Name of Psychiatrist: [facility] Psychiatrist's Psychiatric Appointment Comment: [address], [place], [address] Contact Information Contact Information Comment: [address], [place] [address] CPT Code CPT Code 67637
[2019-01-02] MEDS: PALIPERIDONE 3 MG TABCR PO SCH (10:01)
[2019-01-02] MEDS: TRIHEXYPHENIDYL HCL 2 MG TAB PO SCH ×2 (10:01→21:10)
[2019-01-02] MEDS: NICOTINE 14 MG/24 HR PATCH TD SCH (10:02)
--- NOTE | 2019-01-02 15:47 | Medical Student Progress Note ---
Date of Service January 02, 2019 Assessment & Plan (1) Unspecified psychosis: This is a 28-year-old man with a history of unspecific psychotic disorder who was taken to an emergency department in [place] for being found acting strangely in a store and was transferred to [facility] for psychiatric care. Jose continues to exhibit psychotic behavior such as talking to himself, laughing inappropriately, and highly disorganized thought processes. 1. Unspecified psychotic disorder - Thoughts are very disorganized today. There are long moments of pause before responding and responses are nonsensical. We will continue the current regimen with the exception of lowering his benzodiazepine to decrease morning fatigue. - Continue Depakote ER 1000 mg qHS. - Continue paliperidone 9 mg. Goal is to transition to IM therapy as he is noncompliant with his medications. - Continue haloperidol 5mg qHS. - Begin trihexyphenidyl 2 mg BID for restlessness. Offer benztropine 1 mg q4 PRN for EPS. - Encourage group therapy and activities. - Fasting lipid panel and blood glucose are WNL. - Q15 safety checks. 2. Nicotine Dependence - Continue 14 mg nicotine patch qAM. 3. Sleep Disturbance - Continue lorazepam 1 mg qHS. 4. Disposition - Jose continues to have disorganized thoughts and speech. - Continue inpatient hospitalization until meds are optimized and outpatient care coordinated. - Need to coordinate transfer to hospital closer to support system, but no [place] facilities are accepting him thus far. Subjective This is a 28-year-old man with a history of unspecific psychotic disorder who was taken to an emergency department in [place] for being found acting strangely in a store and was transferred to [facility] for psychiatric care. Jose says he is doing "better." His sleep and appetite are both good. He says his mood is "fantastic" but also "hazy." When asked to elaborate he describes his history of "smoking marijuana and multiple concussions" that led to "hospitalizations but I'm protecting myself." He offers no more coherent history. He denies SI, HI, or hallucinations. Physical Exam 2 Vital Signs (Past 24 Hours): Last Vital Signs Temp 36.7 C 01/02/19 06:45 Pulse 97 H 01/02/19 06:46 Resp 16 01/02/19 06:45 BP 137/66 01/02/19 06:46 Psychiatric: Orientation: cooperative Apperance: appropriately groomed Eye Contact: + fair eye contact Motor Behavior: no abnormal motor movements Speech: + abnormal rate/rhythm/volume of speech (slow to respond, mumbles to self) Affect: + blunted affect Thought Process: + tangential thought process and + looseness of associations Suicidal Thoughts: denies suicidal thoughts Homicidal Thoughts: denies homicidal thoughts Hallucinations: no auditory hallucinations and no visual hallucinations Cognition: + recent memory not intact and + remote memory not intact Insight: + poor insight Judgement: + poor judgement Results & Data Medications Administered Acetaminophen (Tylenol) 650 mg PO Q4H PRN PRN Reason: Headache or Minor Fever Stop: 01/24/19 02:05 Last Admin: 12/27/18 15:41 Dose: 650 mg Benztropine Mesylate (Cogentin) 1 mg PO Q4 PRN PRN Reason: EPS Stop: 01/24/19 02:10 Last Admin: 12/31/18 21:01 Dose: 1 mg Admin: 12/29/18 20:29 Dose: 1 mg Admin: 12/29/18 03:54 Dose: 1 mg Admin: 12/27/18 19:01 Dose: 1 mg Admin: 12/25/18 16:26 Dose: 1 mg Divalproex Sodium (Depakote Extended Release) 1,000 mg PO HS [facility]OK[facility] Stop: 01/24/19 21:59 Last Admin: 01/01/19 21:14 Dose: 1,000 mg Admin: 12/31/18 21:01 Dose: 1,000 mg Admin: 12/30/18 20:57 Dose: 1,000 mg Admin: 12/29/18 20:26 Dose: 1,000 mg Admin: 12/28/18 21:35 Dose: 1,000 mg Admin: 12/27/18 21:09 Dose: 1,000 mg Admin: 12/26/18 20:56 Dose: 1,000 mg Admin: 12/25/18 21:04 Dose: 1,000 mg Haloperidol (Haldol) 5 mg PO Q4 PRN PRN Reason: Agitation Stop: 01/24/19 02:08 Last Admin: 12/29/18 20:29 Dose: 5 mg Admin: 12/29/18 03:53 Dose: 5 mg Admin: 12/27/18 19:01 Dose: 5 mg Admin: 12/27/18 14:19 Dose: 5 mg Admin: 12/25/18 16:26 Dose: 5 mg Admin: 12/25/18 11:54 Dose: 5 mg Haloperidol (Haldol) 5 mg PO HS [facility]OKESH Stop: 01/30/19 21:59 Last Admin: 01/01/19 21:15 Dose: 5 mg Admin: 12/31/18 21:01 Dose: 5 mg Hydroxyzine HCl (Vistaril) 50 mg PO HSZ PRN PRN Reason: Insomnia Stop: 01/24/19 02:05 Last Admin: 12/31/18 01:16 Dose: 50 mg Admin: 12/28/18 23:09 Dose: 50 mg Admin: 12/27/18 01:49 Dose: 50 mg Lorazepam (Ativan) 2 mg PO Q4 PRN PRN Reason: Anxiety Stop: 01/24/19 02:07 Last Admin: 12/29/18 20:29 Dose: 2 mg Admin: 12/29/18 03:53 Dose: 2 mg Admin: 12/27/18 19:01 Dose: 2 mg Admin: 12/25/18 16:26 Dose: 2 mg Miscellaneous (Remove Nicoderm Patch) 1 ea N/A DAILY@2100 [facility] Stop: 01/24/19 20:59 Last Admin: 01/01/19 21:17 Dose: Not Given Admin: 12/31/18 21:06 Dose: Not Given Admin: 12/30/18 21:00 Dose: 1 ea Admin: 12/29/18 20:27 Dose: Not Given Admin: 12/28/18 21:35 Dose: Not Given Admin: 12/27/18 21:09 Dose: Not Given Admin: 12/26/18 20:57 Dose: Not Given Admin: 12/25/18 21:07 Dose: Not Given Nicotine (Nicoderm Cq) 14 mg TD QAM [facility] Stop: 01/24/19 08:59 Last Admin: 01/02/19 10:02 Dose: 14 mg Admin: 01/01/19 09:41 Dose: 14 mg Admin: 12/31/18 10:37 Dose: 14 mg Admin: 12/30/18 08:38 Dose: 14 mg Admin: 12/29/18 12:33 Dose: 14 mg Admin: 12/28/18 09:18 Dose: 14 mg Admin: 12/27/18 13:22 Dose: 14 mg Admin: 12/26/18 20:14 Dose: 14 mg Admin: 12/26/18 09:20 Dose: Not Given Admin: 12/25/18 10:50 Dose: 14 mg Nicotine Polacrilex (Nicorette 2mg) 1 piece MT UD PRN PRN Reason: Nicotine Withdrawal Stop: 01/24/19 02:05 Last Admin: 12/28/18 10:01 Dose: 1 piece Paliperidone (Invega) 9 mg PO DAILY [facility] Stop: 01/30/19 11:44 Last Admin: 01/02/19 10:01 Dose: 9 mg Admin: 01/01/19 09:41 Dose: 9 mg Admin: 12/31/18 11:52 Dose: 9 mg Trihexyphenidyl HCl (Artane) 2 mg PO BID [facility] Stop: 01/27/19 20:59 Last Admin: 01/02/19 10:01 Dose: 2 mg Admin: 01/01/19 21:14 Dose: 2 mg Admin: 01/01/19 09:41 Dose: 2 mg Admin: 12/31/18 21:01 Dose: 2 mg Admin: 12/31/18 10:35 Dose: 2 mg Admin: 12/30/18 20:57 Dose: 2 mg Admin: 12/30/18 08:33 Dose: 2 mg Admin: 12/29/18 20:26 Dose: 2 mg Admin: 12/29/18 12:33 Dose: 2 mg Admin: 12/28/18 21:35 Dose: 2 mg
[2019-01-02] MEDS: HALOPERIDOL 5 MG TAB PO SCH (21:10)
[2019-01-02] MEDS: DIVALPROEX EXTENDED RELEASE 500 MG TAB PO SCH (21:10)
[2019-01-02] MEDS: LORazepam 1 MG TAB PO SCH (21:12)
[2019-01-03] MEDS: NICOTINE 14 MG/24 HR PATCH TD SCH (09:09)
[2019-01-03] MEDS: TRIHEXYPHENIDYL HCL 2 MG TAB PO SCH ×2 (09:10→21:05)
[2019-01-03] MEDS: PALIPERIDONE 3 MG TABCR PO SCH (09:10)
--- NOTE | 2019-01-03 10:25 | Psychiatric Progress Note ---
Date of Service January 03, 2019 Impression / Recommendations Impression The patient remains in behavioral control and tolerating medications without side effects. His conversation remains disconnected, with comments not always making sense or in context, but denies SI/HI, or hallucinations. We will work toward firming up all of his aftercare plans and have communicated with his parents that he will likely be able to discharge this weekend. They have indicated that they would be available on Tuesday to pick him up. (1) Unspecified psychosis: 12/25 - Haldol 5 mg q 4 h prn psychosis until we obtain more information - Call father for additional supplemental information about past meds, psych providers and hospitalizations - Continue Depakote ER 100 mg HS with level in the AM - DC Seroquel - Q 15 min checks for safety - Excuse patient from groups today - Will need psychiatric aftercare - Safety planning - Patient doesn't know where his car is. Will need to clarify with [facility] police - Obtain records from [place] hospitalization 12/26 - Invega 3 mg HS increasing to 6 mg tomorrow - Consider Sustenna for improved compliance, but would like to see previous records to determine why Sustenna was stopped in the past. - Continue reality orientation, safety planning 12/27 - Collateral obtained from parents and outpatient psychiatric records reviewed, awaiting [facility] records. - Continue paliperidone and increase to 6 mg daily. Fasting lipid profile and glucose ordered for tomorrow morning for monitoring on an atypical antipsychotic. - Parents coming this weekend from [place], will hold family meeting. 12/28 - Continue Invega 6 mg and if no limiting side effects, initiate Sustenna - Patient c/o some restlessnes and muscle sensations. Will order one time dose Artane 5 mg and if helpful will schedule. 12/29 -After interviewing this patient fairly extensively I note that he does appear to be somewhat depressed at times, but he clearly seems to meet criteria for schizophrenia. More specifically, there are prominent delusions and hallucinations, and clear evidence of a thought disorder characterized by highly disorganized thinking and loose associations. -The patient indicates that he feels that he is tolerating both valproic acid and Invega well, and notes no side effects. -I will increase his dose of that Invega to a dose of 9 mg at bedtime, beginning tonight. 12/30 -continue increased dose of Invega as well as continued utilization of Haldol and Ativan prns - family meeting today - reviewed fasting labs for baseline were wnl 12/31 -remains disorganized -Continue medication regimen with plan to titrate invega as appropriate -will consider standing at bedtime Haldol and Ativan if he appears more agitated today after not receiving the prn medication yesterday 01/01 - Continue current meds. Explore options for continued treatment at a hospital closer to home in [place]. 01/02 -No accepting facilities in [place] for ongoing inpatient treatment. Will start working on discharge plans. Continue current medications, and reduce lorazepam from 2 mg at bedtime to 1 mg at bedtime to try to limit a.m. sedation. 12/16 - Continue current meds - Collaborate with parents to discharge on Tuesday - Confirm aftercare plans Inventory Assets Strengths: Willingness to engage in treatment Needs: To consistently be in psychiatric treatment Risk Factors Assessment Male: Yes : Yes Do You Have Access To A Gun?: No Health Problems: No Mental Health Diagnoses: Yes Substance Use Disorders: No Previous Attempt: No Family History of Suicide: Yes Previous Psychiatric Hospitalization: Yes Smoker: Yes Protective Factors Assessment : No Responsible for Young Children: No Employed: Yes Supportive Family: Yes Interval History Identifying Information 28 yo male from [place], admitted voluntarily on 12/25/18 on transfer from [place], after he had traveled out of [facility] and was confused. He has a long mental health history, diagnosed with schizoaffective disorder, and multiple hospitalizations including long-term treatment at the [facility]. Chief Complaint "I'm good.". Review of Systems Sleep Information Total Hours of Sleep: 8.5 Sleep Comments: pt appeared to sleep 1.5 hrs during evening shift. pt on q-15 minute checks Meal Information Percent Meal Consumed - Breakfast: 100 Percent Meal Consumed - Lunch: 100 Percent Meal Consumed - Dinner: 100 Nutrition Comment: per meal record Medication Trials Clozaril- side effects Sustenna -most effective medication per parents Haldol- tremor risperdal- slowed zyprexa- weight gain Subjective Subjective Patient was seen & assessed and interval progress reviewed with Treatment Team. Today he is pacing the unit, but when asked if he felt restless he said no. He feels that his mind is still somewhat confused, worse in the AM, but tries to exercise and follow others' advice. He denies any further episodes of feeling angry or aggressive, and continues to deny SI/HI, aud/vis hallucinations. We discuss a tentative discharge plan to discharge home on Tuesday and he feels that he is ready and will look forward to his parents picking him up. He denies other concerns, problems or physical complaints today. Nursing reports that his behavior has been appropriate. Summary of Past History 12/26/18 History from father. Patient's first hospitalization was at age 18 after a concussion. Jose saw a head injury specialist in [place] and was diagnosed with post concussive syndrome. He has had multiple hospitalizations over the years, diagnosis schizoaffective disorder, and was in [facility] for a year having been discharged about a year ago. He was discharged on court ordered medications and that order in fall 2017. The patient has a history of some aggressive behaviors including pushing people and hitting things and father was concerned about him being around other patients. He has been on multiple meds in the past, some of which include: haldol which caused him tremors, Clozaril to which he had side effects, and Sustenna. He currently lives with his parents in [place] and recieves his mental health care through [facility] in [facility]. Father said that the patient had been at his new job for only 1 day, but felt that he didn't belong there. Father may come to visit this weekend. Medication Trials Clozaril- side effects Sustenna -most effective medication per parents Haldol- tremor risperdal- slowed zyprexa- weight gain Physical Exam Vital Signs (Past 24 Hours) Last Vital Signs Temp 36.7 C 01/03/19 06:52 Pulse 76 01/03/19 06:53 Resp 16 01/03/19 06:52 BP 97/59 L 01/03/19 06:53 Results & Data Current Inpatient Medications Current Inpatient Medications: Current Inpatient Medications Acetaminophen (Tylenol) 650 mg PO Q4H PRN PRN Reason: Headache or Minor Fever Stop: 01/24/19 02:05 Last Admin: 12/27/18 15:41 Dose: 650 mg Al Hydrox/Mg Hydrox/Simethicone (Maalox) 30 ml PO Q4H PRN PRN Reason: GI Upset Stop: 01/24/19 02:05 Benztropine Mesylate (Cogentin) 1 mg PO Q4 PRN PRN Reason: EPS Stop: 01/24/19 02:10 Last Admin: 12/31/18 21:01 Dose: 1 mg Bismuth Subsalicylate (Kaopectate) 15 ml PO PRN PRN PRN Reason: Loose Stool Stop: 01/24/19 02:05 Divalproex Sodium (Depakote Extended Release) 1,000 mg PO HS LOKESH Stop: 01/24/19 21:59 Last Admin: 01/02/19 21:10 Dose: 1,000 mg Haloperidol (Haldol) 5 mg PO Q4 PRN PRN Reason: Agitation Stop: 01/24/19 02:08 Last Admin: 12/29/18 20:29 Dose: 5 mg Haloperidol (Haldol) 5 mg PO HS LOKESH Stop: 01/30/19 21:59 Last Admin: 01/02/19 21:10 Dose: 5 mg Hydroxyzine HCl (Vistaril) 50 mg PO HSZ PRN PRN Reason: Insomnia Stop: 01/24/19 02:05 Last Admin: 12/31/18 01:16 Dose: 50 mg Hydroxyzine HCl (Vistaril) 25 mg PO Q4H PRN PRN Reason: Anxiety Stop: 01/24/19 02:05 Lorazepam (Ativan) 2 mg PO Q4 PRN PRN Reason: Anxiety Stop: 01/24/19 02:07 Last Admin: 12/29/18 20:29 Dose: 2 mg Lorazepam (Ativan) 1 mg PO HS LOKESH Stop: 02/01/19 21:59 Last Admin: 01/02/19 21:12 Dose: 1 mg Magnesium Hydroxide (Milk Of Magnesia) 30 ml PO DAILY PRN PRN Reason: Heartburn Stop: 01/24/19 02:05 Miscellaneous (Remove Nicoderm Patch) 1 ea N/A DAILY@2100 LOKESH Stop: 01/24/19 20:59 Last Admin: 01/02/19 21:12 Dose: 1 ea Nicotine (Nicoderm Cq) 14 mg TD QAM LOKESH Stop: 01/24/19 08:59 Last Admin: 01/03/19 09:09 Dose: 14 mg Nicotine Polacrilex (Nicorette 2mg) 1 piece MT UD PRN PRN Reason: Nicotine Withdrawal Stop: 01/24/19 02:05 Last Admin: 02/14/19 10:01 Dose: 1 piece Paliperidone (Invega) 9 mg PO DAILY LOKESH Stop: 01/30/19 11:44 Last Admin: 01/03/19 09:10 Dose: 9 mg Sodium Chloride ([place] Nasal) 1 - 2 sprays NA PRN PRN PRN Reason: Nasal Dryness/Congestion Stop: 01/24/19 02:05 Trihexyphenidyl HCl (Artane) 2 mg PO BID LOKESH Stop: 01/27/19 20:59 Last Admin: 01/03/19 09:10 Dose: 2 mg Post Discharge Appointments Primary Care Physician Name Of Family Doctor: unknown Psychiatrist Name of Psychiatrist: [facility] Psychiatrist's Psychiatric Appointment Comment: [address] [place], [address] Contact Information Contact Information Comment: [address], [place] [address] CPT Code CPT Code 35121
--- NOTE | 2019-01-03 15:51 | Medical Student Progress Note ---
Date of Service January 03, 2019 Assessment & Plan (1) Unspecified psychosis: This is a 28-year-old man with a history of unspecific psychotic disorder who was taken to an emergency department in [place] for being found acting strangely in a store and was transferred to [facility] for psychiatric care. Jose continues to exhibit psychotic behavior such as talking to himself, laughing inappropriately, and highly disorganized thought processes. 1. Unspecified psychotic disorder - Thoughts continue to be very disorganized. There are long moments of pause before responding and responses are nonsensical. - Continue Depakote ER 1000 mg qHS. - Continue paliperidone 9 mg. Goal is to transition to IM therapy as he is noncompliant with his medications. - Continue haloperidol 5mg qHS. - Begin trihexyphenidyl 2 mg BID for restlessness. Offer benztropine 1 mg q4 PRN for EPS. - Encourage group therapy and activities. - Fasting lipid panel and blood glucose are WNL. - Q15 safety checks. 2. Nicotine Dependence - Continue 14 mg nicotine patch qAM. 3. Sleep Disturbance - Continue lorazepam 1 mg qHS. 4. Disposition - Jose continues to have disorganized thoughts and speech. - Continue inpatient hospitalization until meds are optimized and outpatient care coordinated. - Parents wish to have him go to residential living upon discharge. Subjective This is a 28-year-old man with a history of unspecific psychotic disorder who was taken to an emergency department in [place] for being found acting strangely in a store and was transferred to [facility] for psychiatric care. Jose says he is doing "better." His sleep and appetite are both good. He says his mood is "6/10." He says that he's been "reading his booklet but haven't been following the graphs...I don't know how to write the questions. Maybe it's man vs. man. I guess I'm going up against women too much." He denies SI, HI, restlessness, or hallucinations. When asked how we can best help him he says "I need a bus because I'm trying to get to a [employer] football game." Staff reports that he continues to be restless, pacing, and making bizarre statements. Parents report that they would like to have him go to residential living upon discharge. Physical Exam 2 Vital Signs (Past 24 Hours): Last Vital Signs Temp 36.7 C 01/03/19 06:52 Pulse 76 01/03/19 06:53 Resp 16 01/03/19 06:52 BP 97/59 L 01/03/19 06:53 Psychiatric: Orientation: alert and cooperative Apperance: appropriately dressed and appropriately groomed Eye Contact: + fair eye contact Motor Behavior: no abnormal motor movements Speech: + abnormal rate/rhythm/volume of speech (slow to respond, mumbles to self) Affect: + blunted affect Mood : no dysphoric mood Thought Process: + thought blocking (paucity of speech), + tangential thought process and + looseness of associations Suicidal Thoughts: denies suicidal thoughts Homicidal Thoughts: denies homicidal thoughts Hallucinations: no auditory hallucinations and no visual hallucinations Cognition: attention grossly intact; + recent memory not intact and + remote memory not intact Estimated Intelligence: average estimated intelligence Insight: + severely impaired insight Judgement: + poor judgement Results & Data Medications Administered Acetaminophen (Tylenol) 650 mg PO Q4H PRN PRN Reason: Headache or Minor Fever Stop: 01/24/19 02:05 Last Admin: 12/27/18 15:41 Dose: 650 mg Benztropine Mesylate (Cogentin) 1 mg PO Q4 PRN PRN Reason: EPS Stop: 01/24/19 02:10 Last Admin: 12/31/18 21:01 Dose: 1 mg Admin: 12/29/18 20:29 Dose: 1 mg Admin: 12/29/18 03:54 Dose: 1 mg Admin: 12/27/18 19:01 Dose: 1 mg Admin: 12/25/18 16:26 Dose: 1 mg Divalproex Sodium (Depakote Extended Release) 1,000 mg PO HS LOKESH Stop: 01/24/19 21:59 Last Admin: 01/02/19 21:10 Dose: 1,000 mg Admin: 01/01/19 21:14 Dose: 1,000 mg Admin: 12/31/18 21:01 Dose: 1,000 mg Admin: 12/30/18 20:57 Dose: 1,000 mg Admin: 12/29/18 20:26 Dose: 1,000 mg Admin: 12/28/18 21:35 Dose: 1,000 mg Admin: 12/27/18 21:09 Dose: 1,000 mg Admin: 12/26/18 20:56 Dose: 1,000 mg Admin: 12/25/18 21:04 Dose: 1,000 mg Haloperidol (Haldol) 5 mg PO Q4 PRN PRN Reason: Agitation Stop: 01/24/19 02:08 Last Admin: 12/29/18 20:29 Dose: 5 mg Admin: 12/29/18 03:53 Dose: 5 mg Admin: 12/27/18 19:01 Dose: 5 mg Admin: 12/27/18 14:19 Dose: 5 mg Admin: 12/25/18 16:26 Dose: 5 mg Admin: 12/25/18 11:54 Dose: 5 mg Haloperidol (Haldol) 5 mg PO HS LOKESH Stop: 01/30/19 21:59 Last Admin: 01/02/19 21:10 Dose: 5 mg Admin: 01/01/19 21:15 Dose: 5 mg Admin: 12/31/18 21:01 Dose: 5 mg Hydroxyzine HCl (Vistaril) 50 mg PO HSZ PRN PRN Reason: Insomnia Stop: 01/24/19 02:05 Last Admin: 12/31/18 01:16 Dose: 50 mg Admin: 12/28/18 23:09 Dose: 50 mg Admin: 12/27/18 01:49 Dose: 50 mg Lorazepam (Ativan) 2 mg PO Q4 PRN PRN Reason: Anxiety Stop: 01/24/19 02:07 Last Admin: 12/29/18 20:29 Dose: 2 mg Admin: 12/29/18 03:53 Dose: 2 mg Admin: 12/27/18 19:01 Dose: 2 mg Admin: 12/25/18 16:26 Dose: 2 mg Lorazepam (Ativan) 1 mg PO HS LOKESH Stop: 02/01/19 21:59 Last Admin: 01/02/19 21:12 Dose: 1 mg Miscellaneous (Remove Nicoderm Patch) 1 ea N/A DAILY@2100 LOKESH Stop: 01/24/19 20:59 Last Admin: 01/02/19 21:12 Dose: 1 ea Admin: 01/01/19 21:17 Dose: Not Given Admin: 12/31/18 21:06 Dose: Not Given Admin: 12/30/18 21:00 Dose: 1 ea Admin: 12/29/18 20:27 Dose: Not Given Admin: 12/28/18 21:35 Dose: Not Given Admin: 12/27/18 21:09 Dose: Not Given Admin: 12/26/18 20:57 Dose: Not Given Admin: 12/25/18 21:07 Dose: Not Given Nicotine (Nicoderm Cq) 14 mg TD QAM LOKESH Stop: 01/24/19 08:59 Last Admin: 01/03/19 09:09 Dose: 14 mg Admin: 01/02/19 10:02 Dose: 14 mg Admin: 01/01/19 09:41 Dose: 14 mg Admin: 12/31/18 10:37 Dose: 14 mg Admin: 12/30/18 08:38 Dose: 14 mg Admin: 12/29/18 12:33 Dose: 14 mg Admin: 12/28/18 09:18 Dose: 14 mg Admin: 12/27/18 13:22 Dose: 14 mg Admin: 12/26/18 20:14 Dose: 14 mg Admin: 12/26/18 09:20 Dose: Not Given Admin: 12/25/18 10:50 Dose: 14 mg Nicotine Polacrilex (Nicorette 2mg) 1 piece MT UD PRN PRN Reason: Nicotine Withdrawal Stop: 01/24/19 02:05 Last Admin: 12/28/18 10:01 Dose: 1 piece Paliperidone (Invega) 9 mg PO DAILY LOKESH Stop: 01/30/19 11:44 Last Admin: 01/03/19 09:10 Dose: 9 mg Admin: 01/02/19 10:01 Dose: 9 mg Admin: 01/01/19 09:41 Dose: 9 mg Admin: 12/31/18 11:52 Dose: 9 mg Trihexyphenidyl HCl (Artane) 2 mg PO BID LOKESH Stop: 01/27/19 20:59 Last Admin: 01/03/19 09:10 Dose: 2 mg Admin: 01/02/19 21:10 Dose: 2 mg Admin: 01/02/19 10:01 Dose: 2 mg Admin: 01/01/19 21:14 Dose: 2 mg Admin: 01/01/19 09:41 Dose: 2 mg Admin: 12/31/18 21:01 Dose: 2 mg Admin: 12/31/18 10:35 Dose: 2 mg Admin: 12/30/18 20:57 Dose: 2 mg Admin: 12/30/18 08:33 Dose: 2 mg Admin: 12/29/18 20:26 Dose: 2 mg Admin: 12/29/18 12:33 Dose: 2 mg Admin: 12/28/18 21:35 Dose: 2 mg
[2019-01-03] MEDS: HALOPERIDOL 5 MG TAB PO SCH (21:05)
[2019-01-03] MEDS: DIVALPROEX EXTENDED RELEASE 500 MG TAB PO SCH (21:06)
[2019-01-03] MEDS: LORazepam 1 MG TAB PO SCH (21:06)
[2019-01-04] MEDS: TRIHEXYPHENIDYL HCL 2 MG TAB PO SCH ×2 (07:46→21:07)
[2019-01-04] MEDS: PALIPERIDONE 3 MG TABCR PO SCH (07:46)
[2019-01-04] MEDS: NICOTINE 14 MG/24 HR PATCH TD SCH (07:47)
--- NOTE | 2019-01-04 09:34 | Psychiatric Progress Note ---
Date of Service January 04, 2019 Impression / Recommendations Impression The patient remains in behavioral control and tolerating medications without side effects. Tired today, but presenting much as he has the last several days. He continues with periods of disconnected comments and poor memory and despite his denials of restlessness, I have concern for akathisia. We have been in contact with his parents informing them that we think he is stable enough to travel back home to [place] and they are available to pick him up and transport him home on Tuesday. We will take the remaining time to secure prompt follow up care (1) Unspecified psychosis: 12/25 - Haldol 5 mg q 4 h prn psychosis until we obtain more information - Call father for additional supplemental information about past meds, psych providers and hospitalizations - Continue Depakote ER 100 mg HS with level in the AM - DC Seroquel - Q 15 min checks for safety - Excuse patient from groups today - Will need psychiatric aftercare - Safety planning - Patient doesn't know where his car is. Will need to clarify with [facility] police - Obtain records from [place] hospitalization 12/26 - Invega 3 mg HS increasing to 6 mg tomorrow - Consider Sustenna for improved compliance, but would like to see previous records to determine why Sustenna was stopped in the past. - Continue reality orientation, safety planning 12/27 - Collateral obtained from parents and outpatient psychiatric records reviewed, awaiting [facility] hospital records. - Continue paliperidone and increase to 6 mg daily. Fasting lipid profile and glucose ordered for tomorrow morning for monitoring on an atypical antipsychotic. - Parents coming this weekend from [place], will hold family meeting. 12/28 - Continue Invega 6 mg and if no limiting side effects, initiate Sustenna - Patient c/o some restlessnes and muscle sensations. Will order one time dose Artane 5 mg and if helpful will schedule. 12/29 -After interviewing this patient fairly extensively I note that he does appear to be somewhat depressed at times, but he clearly seems to meet criteria for schizophrenia. More specifically, there are prominent delusions and hallucinations, and clear evidence of a thought disorder characterized by highly disorganized thinking and loose associations. -The patient indicates that he feels that he is tolerating both valproic acid and Invega well, and notes no side effects. -I will increase his dose of that Invega to a dose of 9 mg at bedtime, beginning tonight. 12/30 -continue increased dose of Invega as well as continued utilization of Haldol and Ativan prns - family meeting today - reviewed fasting labs for baseline were wnl 12/31 -remains disorganized -Continue medication regimen with plan to titrate invega as appropriate -will consider standing at bedtime Haldol and Ativan if he appears more agitated today after not receiving the prn medication yesterday 01/01 - Continue current meds. Explore options for continued treatment at a hospital closer to home in [place]. 01/02 -No accepting facilities in [place] for ongoing inpatient treatment. Will start working on discharge plans. Continue current medications, and reduce lorazepam from 2 mg at bedtime to 1 mg at bedtime to try to limit a.m. sedation. 01/03 - Continue current meds - Collaborate with parents to discharge on Tuesday - Confirm aftercare plans 01/04 - Continue current meds - Complete aftercare in anticipation of discharge on Tuesday Inventory Assets Strengths: Willingness to engage in treatment Needs: To consistently be in psychiatric treatment Risk Factors Assessment Male: Yes : Yes Do You Have Access To A Gun?: No Health Problems: No Mental Health Diagnoses: Yes Substance Use Disorders: No Previous Attempt: No Family History of Suicide: Yes Previous Psychiatric Hospitalization: Yes Smoker: Yes Protective Factors Assessment : No Responsible for Young Children: No Employed: Yes Supportive Family: Yes Interval History Identifying Information 28 yo male from [place], admitted voluntarily on 12/25/18 on transfer from [place], after he had traveled out of [facility] and was confused. He has a long mental health history, diagnosed with schizoaffective disorder, and multiple hospitalizations including long-term treatment at the [facility]. Chief Complaint "I'm just tired. ". Review of Systems Sleep Information Total Hours of Sleep: 6.5 Sleep Comments: pt appeared to sleep 1.5 hrs during evening shift. pt on q-15 minute checks Meal Information Percent Meal Consumed - Breakfast: 100 Percent Meal Consumed - Lunch: 100 Percent Meal Consumed - Dinner: 100 Nutrition Comment: per meal record Medication Trials Clozaril- side effects Sustenna -most effective medication per parents Haldol- tremor risperdal- slowed zyprexa- weight gain Subjective Subjective Patient was seen & assessed and interval progress reviewed with Treatment Team. The patient is tired and still in bed. he says that he "can't wait to get back to the gym and my job.". He continues to deny aud/vis hallucinations as well as SI/HI. Nursing reports that he has been in good behavioral control, but paces a lot around the unit. Summary of Past History 12/26/18 History from father. Patient's first hospitalization was at age 18 after a concussion. Jose saw a head injury specialist in [place] and was diagnosed with post concussive syndrome. He has had multiple hospitalizations over the years, diagnosis schizoaffective disorder, and was in [facility] for a year having been discharged about a year ago. He was discharged on court ordered medications and that order in fall 2017. The patient has a history of some aggressive behaviors including pushing people and hitting things and father was concerned about him being around other patients. He has been on multiple meds in the past, some of which include: haldol which caused him tremors, Clozaril to which he had side effects, and Sustenna. He currently lives with his parents in [place] and recieves his mental health care through [facility] in [facility]. Father said that the patient had been at his new job for only 1 day, but felt that he didn't belong there. Father may come to visit this weekend. Medication Trials Clozaril- side effects Sustenna -most effective medication per parents Haldol- tremor risperdal- slowed zyprexa- weight gain Physical Exam Psychiatric Orientation: cooperative Apperance: appropriately dressed Eye Contact: + poor eye contact (eyes closed through part of the conversation) Motor Behavior: no abnormal motor movements quiet, garbled tired Mood: no depressed mood and no anxious mood Thought Process: goal directed thought process Thought Content: reality based without delusions Suicidal Thoughts: denies suicidal thoughts Homicidal Thoughts: denies homicidal thoughts Hallucinations: no auditory hallucinations and no visual hallucinations Cognition: attention grossly intact and language grossly intact Estimated Intelligence: average estimated intelligence Insight: + impaired insight Judgement: + limited judgement Vital Signs (Past 24 Hours) Last Vital Signs Temp 36.6 C 01/04/19 06:35 Pulse 81 01/04/19 06:35 Resp 16 01/04/19 06:35 BP 110/64 01/04/19 06:35 Results & Data Laboratory Results Laboratory Results - last 24 hr 01/04/19 07:11 Valproic Acid 46 L Current Inpatient Medications Current Inpatient Medications: Current Inpatient Medications Acetaminophen (Tylenol) 650 mg PO Q4H PRN PRN Reason: Headache or Minor Fever Stop: 01/24/19 02:05 Last Admin: 12/27/18 15:41 Dose: 650 mg Al Hydrox/Mg Hydrox/Simethicone (Maalox) 30 ml PO Q4H PRN PRN Reason: GI Upset Stop: 01/24/19 02:05 Benztropine Mesylate (Cogentin) 1 mg PO Q4 PRN PRN Reason: EPS Stop: 01/24/19 02:10 Last Admin: 12/31/18 21:01 Dose: 1 mg Bismuth Subsalicylate (Kaopectate) 15 ml PO PRN PRN PRN Reason: Loose Stool Stop: 01/24/19 02:05 Divalproex Sodium (Depakote Extended Release) 1,000 mg PO HS LOKESH Stop: 01/24/19 21:59 Last Admin: 01/03/19 21:06 Dose: 1,000 mg Haloperidol (Haldol) 5 mg PO Q4 PRN PRN Reason: Agitation Stop: 01/24/19 02:08 Last Admin: 12/29/18 20:29 Dose: 5 mg Haloperidol (Haldol) 5 mg PO HS LOKESH Stop: 01/30/19 21:59 Last Admin: 01/03/19 21:05 Dose: 5 mg Hydroxyzine HCl (Vistaril) 50 mg PO HSZ PRN PRN Reason: Insomnia Stop: 01/24/19 02:05 Last Admin: 12/31/18 01:16 Dose: 50 mg Hydroxyzine HCl (Vistaril) 25 mg PO Q4H PRN PRN Reason: Anxiety Stop: 01/24/19 02:05 Lorazepam (Ativan) 2 mg PO Q4 PRN PRN Reason: Anxiety Stop: 01/24/19 02:07 Last Admin: 12/29/18 20:29 Dose: 2 mg Lorazepam (Ativan) 1 mg PO HS LOKESH Stop: 02/01/19 21:59 Last Admin: 01/03/19 21:06 Dose: 1 mg Magnesium Hydroxide (Milk Of Magnesia) 30 ml PO DAILY PRN PRN Reason: Heartburn Stop: 01/24/19 02:05 Miscellaneous (Remove Nicoderm Patch) 1 ea N/A DAILY@2100 LOKESH Stop: 01/24/19 20:59 Last Admin: 01/03/19 21:09 Dose: Not Given Nicotine (Nicoderm Cq) 14 mg TD QAM LOKESH Stop: 01/24/19 08:59 Last Admin: 01/04/19 07:47 Dose: Not Given Nicotine Polacrilex (Nicorette 2mg) 1 piece MT UD PRN PRN Reason: Nicotine Withdrawal Stop: 01/24/19 02:05 Last Admin: 12/28/18 10:01 Dose: 1 piece Paliperidone (Invega) 9 mg PO DAILY LOKESH Stop: 01/30/19 11:44 Last Admin: 01/04/19 07:46 Dose: 9 mg Sodium Chloride ([place] Nasal) 1 - 2 sprays NA PRN PRN PRN Reason: Nasal Dryness/Congestion Stop: 01/24/19 02:05 Trihexyphenidyl HCl (Artane) 2 mg PO BID LOKESH Stop: 01/27/19 20:59 Last Admin: 01/04/19 07:46 Dose: 2 mg Post Discharge Appointments Primary Care Physician Name Of Family Doctor: unknown Psychiatrist Name of Psychiatrist: [facility] Psychiatrist's Psychiatric Appointment Comment: [place], [address] Contact Information Contact Information Comment: [address] [place] [address] CPT Code CPT Code 27876
--- NOTE | 2019-01-04 10:07 | Medical Student Progress Note ---
Date of Service January 04, 2019 Assessment & Plan (1) Unspecified psychosis: This is a 28-year-old man with a history of unspecific psychotic disorder who was taken to an emergency department in [place] for being found acting strangely in a store and was transferred to [facility] for psychiatric care. Jose continues to exhibit psychotic behavior such as talking to himself, laughing inappropriately, and highly disorganized thought processes. 1. Unspecified psychotic disorder - Thoughts continue to be very disorganized. There are long moments of pause before responding and responses are nonsensical. - Depakote level on 01/04 is low at 46. - Increase depakote ER to 1500 mg qHS. - Continue paliperidone 9 mg. Goal is to transition to IM therapy as he is noncompliant with his medications. - Continue haloperidol 5mg qHS. - Continue trihexyphenidyl 2 mg BID for restlessness. Offer benztropine 1 mg q4 PRN for EPS. - Encourage group therapy and activities. - Fasting lipid panel and blood glucose are WNL. - Q15 safety checks. 2. Nicotine Dependence - Continue 14 mg nicotine patch qAM. 3. Sleep Disturbance - Continue lorazepam 1 mg qHS. 4. Disposition - Jose continues to have disorganized thoughts and speech. - Continue inpatient hospitalization until meds are optimized and outpatient care coordinated. Will see Dr. Donovan for psychiatry and Amanda Leary for therapy. - Parents wish to have him go to residential living upon discharge. Subjective This is a 28-year-old man with a history of unspecific psychotic disorder who was taken to an emergency department in [place] for being found acting strangely in a store and was transferred to [facility] for psychiatric care. Staff reports that Jose was hesitant to give up his fork after dinner last night because someone could collect his DNA. He says he is overall "good." After having his blood drawn this morning he says he "started crashing and dying" but now is fine. He has no current complaints. He denies SI, HI, hallucinations, restlessness, or anxiety. He rates his mood as an 8/10. His appetite is good and he said he "had a few deep REM sleeps." His goal upon discharge is to "find my job again" and to "look for a duplex or small house." Physical Exam 2 Vital Signs (Past 24 Hours): Last Vital Signs Temp 36.6 C 01/04/19 06:35 Pulse 81 01/04/19 06:35 Resp 16 01/04/19 06:35 BP 110/64 01/04/19 06:35 Psychiatric: Orientation: alert and cooperative Apperance: appropriately dressed and appropriately groomed Eye Contact: + fair eye contact Motor Behavior: no abnormal motor movements Speech: normal rate/rhythm/volume of speech (slow to respond, mumbles to self) Affect: euthymic affect Thought Process: + thought blocking (paucity of speech) and + tangential thought process Thought Content: + delusions Suicidal Thoughts: denies suicidal thoughts Homicidal Thoughts: denies homicidal thoughts Hallucinations: no auditory hallucinations and no visual hallucinations Cognition: attention grossly intact; + recent memory not intact and + remote memory not intact Estimated Intelligence: average estimated intelligence Insight: + poor insight Judgement: + poor judgement Results & Data Medications Administered Acetaminophen (Tylenol) 650 mg PO Q4H PRN PRN Reason: Headache or Minor Fever Stop: 01/24/19 02:05 Last Admin: 12/27/18 15:41 Dose: 650 mg Benztropine Mesylate (Cogentin) 1 mg PO Q4 PRN PRN Reason: EPS Stop: 01/24/19 02:10 Last Admin: 12/31/18 21:01 Dose: 1 mg Admin: 12/29/18 20:29 Dose: 1 mg Admin: 12/29/18 03:54 Dose: 1 mg Admin: 12/27/18 19:01 Dose: 1 mg Admin: 12/25/18 16:26 Dose: 1 mg Divalproex Sodium (Depakote Extended Release) 1,000 mg PO HS LOKESH Stop: 01/24/19 21:59 Last Admin: 01/03/19 21:06 Dose: 1,000 mg Admin: 01/02/19 21:10 Dose: 1,000 mg Admin: 01/01/19 21:14 Dose: 1,000 mg Admin: 12/31/18 21:01 Dose: 1,000 mg Admin: 12/30/18 20:57 Dose: 1,000 mg Admin: 12/29/18 20:26 Dose: 1,000 mg Admin: 12/28/18 21:35 Dose: 1,000 mg Admin: 12/27/18 21:09 Dose: 1,000 mg Admin: 12/26/18 20:56 Dose: 1,000 mg Admin: 12/25/18 21:04 Dose: 1,000 mg Haloperidol (Haldol) 5 mg PO Q4 PRN PRN Reason: Agitation Stop: 01/24/19 02:08 Last Admin: 12/29/18 20:29 Dose: 5 mg Admin: 12/29/18 03:53 Dose: 5 mg Admin: 12/27/18 19:01 Dose: 5 mg Admin: 12/27/18 14:19 Dose: 5 mg Admin: 12/25/18 16:26 Dose: 5 mg Admin: 12/25/18 11:54 Dose: 5 mg Haloperidol (Haldol) 5 mg PO HS LOKESH Stop: 01/30/19 21:59 Last Admin: 01/03/19 21:05 Dose: 5 mg Admin: 01/02/19 21:10 Dose: 5 mg Admin: 01/01/19 21:15 Dose: 5 mg Admin: 12/31/18 21:01 Dose: 5 mg Hydroxyzine HCl (Vistaril) 50 mg PO HSZ PRN PRN Reason: Insomnia Stop: 01/24/19 02:05 Last Admin: 12/31/18 01:16 Dose: 50 mg Admin: 12/28/18 23:09 Dose: 50 mg Admin: 12/27/18 01:49 Dose: 50 mg Lorazepam (Ativan) 2 mg PO Q4 PRN PRN Reason: Anxiety Stop: 01/24/19 02:07 Last Admin: 12/29/18 20:29 Dose: 2 mg Admin: 12/29/18 03:53 Dose: 2 mg Admin: 12/27/18 19:01 Dose: 2 mg Admin: 12/25/18 16:26 Dose: 2 mg Lorazepam (Ativan) 1 mg PO HS LOKESH Stop: 02/01/19 21:59 Last Admin: 01/03/19 21:06 Dose: 1 mg Admin: 01/02/19 21:12 Dose: 1 mg Miscellaneous (Remove Nicoderm Patch) 1 ea N/A DAILY@2100 LOKESH Stop: 01/24/19 20:59 Last Admin: 01/03/19 21:09 Dose: Not Given Admin: 01/02/19 21:12 Dose: 1 ea Admin: 01/01/19 21:17 Dose: Not Given Admin: 12/31/18 21:06 Dose: Not Given Admin: 12/30/18 21:00 Dose: 1 ea Admin: 12/29/18 20:27 Dose: Not Given Admin: 12/28/18 21:35 Dose: Not Given Admin: 12/27/18 21:09 Dose: Not Given Admin: 12/26/18 20:57 Dose: Not Given Admin: 12/25/18 21:07 Dose: Not Given Nicotine (Nicoderm Cq) 14 mg TD QAM LOKESH Stop: 01/24/19 08:59 Last Admin: 01/04/19 07:47 Dose: Not Given Admin: 01/03/19 09:09 Dose: 14 mg Admin: 01/02/19 10:02 Dose: 14 mg Admin: 01/01/19 09:41 Dose: 14 mg Admin: 12/31/18 10:37 Dose: 14 mg Admin: 12/30/18 08:38 Dose: 14 mg Admin: 12/29/18 12:33 Dose: 14 mg Admin: 12/28/18 09:18 Dose: 14 mg Admin: 12/27/18 13:22 Dose: 14 mg Admin: 12/26/18 20:14 Dose: 14 mg Admin: 12/26/18 09:20 Dose: Not Given Admin: 12/25/18 10:50 Dose: 14 mg Nicotine Polacrilex (Nicorette 2mg) 1 piece MT UD PRN PRN Reason: Nicotine Withdrawal Stop: 01/24/19 02:05 Last Admin: 12/28/18 10:01 Dose: 1 piece Paliperidone (Invega) 9 mg PO DAILY LOKESH Stop: 01/30/19 11:44 Last Admin: 01/04/19 07:46 Dose: 9 mg Admin: 01/03/19 09:10 Dose: 9 mg Admin: 01/02/19 10:01 Dose: 9 mg Admin: 01/01/19 09:41 Dose: 9 mg Admin: 12/31/18 11:52 Dose: 9 mg Trihexyphenidyl HCl (Artane) 2 mg PO BID LOKESH Stop: 01/27/19 20:59 Last Admin: 01/04/19 07:46 Dose: 2 mg Admin: 01/03/19 21:05 Dose: 2 mg Admin: 01/03/19 09:10 Dose: 2 mg Admin: 01/02/19 21:10 Dose: 2 mg Admin: 01/02/19 10:01 Dose: 2 mg Admin: 01/01/19 21:14 Dose: 2 mg Admin: 01/01/19 09:41 Dose: 2 mg Admin: 12/31/18 21:01 Dose: 2 mg Admin: 12/31/18 10:35 Dose: 2 mg Admin: 12/30/18 20:57 Dose: 2 mg Admin: 12/30/18 08:33 Dose: 2 mg Admin: 12/29/18 20:26 Dose: 2 mg Admin: 12/29/18 12:33 Dose: 2 mg Admin: 12/28/18 21:35 Dose: 2 mg
[2019-01-04] MEDS: NICOTINE POLACRILEX 2 MG GUM MT PRN (17:41)
[2019-01-04] MEDS: HALOPERIDOL 5 MG TAB PO SCH (21:07)
[2019-01-04] MEDS: LORazepam 1 MG TAB PO SCH (21:07)
[2019-01-04] MEDS: DIVALPROEX EXTENDED RELEASE 500 MG TAB PO SCH (21:08)
[2019-01-05] MEDS: PALIPERIDONE 3 MG TABCR PO SCH (08:52)
[2019-01-05] MEDS: TRIHEXYPHENIDYL HCL 2 MG TAB PO SCH ×2 (08:52→21:18)
[2019-01-05] MEDS: NICOTINE 14 MG/24 HR PATCH TD SCH (08:52)
--- NOTE | 2019-01-05 09:25 | Medical Student Progress Note ---
Date of Service January 05, 2019 Assessment & Plan (1) Unspecified psychosis: This is a 28-year-old man with a history of unspecific psychotic disorder who was taken to an emergency department in [place] for being found acting strangely in a store and was transferred to [facility] for psychiatric care. Jose continues to exhibit psychotic behavior such as talking to himself, laughing inappropriately, and highly disorganized thought processes. 1. Unspecified psychotic disorder - He is overall becoming more fluent and organized in his speech, but he still exhibits delusional and disorganized thoughts. He is less irritable and restless than admission as well. - Depakote level on 01/04 is low at 46 and was therefore his dose of depakote ER was increased to 1500 mg qHS. - Continue paliperidone 9 mg. Goal is to transition to IM therapy as an outpatient as he is noncompliant with his medications. - Continue haloperidol 5mg qHS. - Continue trihexyphenidyl 2 mg BID for restlessness. Offer benztropine 1 mg q4 PRN for EPS. - Encourage group therapy and activities. - Fasting lipid panel and blood glucose are WNL. - Q15 safety checks. 2. Nicotine Dependence - Continue 14 mg nicotine patch qAM. 3. Sleep Disturbance - Continue lorazepam 1 mg qHS. 4. Disposition - Jose continues to have disorganized thoughts and speech. - Continue inpatient hospitalization until meds are optimized and outpatient care coordinated. Will see Dr. Donovan for psychiatry and Amanda Leary for therapy. - Parents wish to have him go to residential living upon discharge. They will pick him up at 1PM on 01/06. Subjective This is a 28-year-old man with a history of unspecific psychotic disorder who was taken to an emergency department in [place] for being found acting strangely in a store and was transferred to [facility] for psychiatric care. 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 When he returns to work he says he needs to explain what happened and see if they will have him back, but "I don't want to throw my temporal lobes into the authority." He denies SI, HI, hallucinations, restlessness, or muscle rigidity. Physical Exam 2 Vital Signs (Past 24 Hours): Last Vital Signs Temp 36.7 C 01/05/19 08:31 Pulse 76 01/05/19 08:31 Resp 16 01/05/19 08:31 BP 96/57 L 01/05/19 08:31 Psychiatric: Orientation: alert and cooperative Apperance: appropriately dressed and appropriately groomed Eye Contact: + fair eye contact Motor Behavior: no abnormal motor movements Speech: normal rate/rhythm/volume of speech (slow to respond, mumbles to self) Affect: euthymic affect Mood: + dysphoric mood Thought Process: + tangential thought process Thought Content: + delusions; not paranoid Suicidal Thoughts: denies suicidal thoughts Homicidal Thoughts: denies homicidal thoughts Hallucinations: no auditory hallucinations and no visual hallucinations Cognition: recent memory grossly intact, remote memory grossly intact and attention grossly intact Estimated Intelligence: average estimated intelligence Insight: + poor insight Judgement: + poor judgement Results & Data Medications Administered Acetaminophen (Tylenol) 650 mg PO Q4H PRN PRN Reason: Headache or Minor Fever Stop: 01/24/19 02:05 Last Admin: 12/27/18 15:41 Dose: 650 mg Benztropine Mesylate (Cogentin) 1 mg PO Q4 PRN PRN Reason: EPS Stop: 01/24/19 02:10 Last Admin: 12/31/18 21:01 Dose: 1 mg Admin: 12/29/18 20:29 Dose: 1 mg Admin: 12/29/18 03:54 Dose: 1 mg Admin: 12/27/18 19:01 Dose: 1 mg Admin: 12/25/18 16:26 Dose: 1 mg Divalproex Sodium (Depakote Extended Release) 1,500 mg PO HS LOKESH Stop: 02/03/19 21:59 Last Admin: 01/04/19 21:08 Dose: 1,500 mg Haloperidol (Haldol) 5 mg PO Q4 PRN PRN Reason: Agitation Stop: 01/24/19 02:08 Last Admin: 12/29/18 20:29 Dose: 5 mg Admin: 12/29/18 03:53 Dose: 5 mg Admin: 12/27/18 19:01 Dose: 5 mg Admin: 12/27/18 14:19 Dose: 5 mg Admin: 12/25/18 16:26 Dose: 5 mg Admin: 12/25/18 11:54 Dose: 5 mg Haloperidol (Haldol) 5 mg PO HS LOKESH Stop: 01/30/19 21:59 Last Admin: 01/04/19 21:07 Dose: 5 mg Admin: 01/03/19 21:05 Dose: 5 mg Admin: 01/02/19 21:10 Dose: 5 mg Admin: 01/01/19 21:15 Dose: 5 mg Admin: 12/31/18 21:01 Dose: 5 mg Hydroxyzine HCl (Vistaril) 50 mg PO HSZ PRN PRN Reason: Insomnia Stop: 01/24/19 02:05 Last Admin: 12/31/18 01:16 Dose: 50 mg Admin: 12/28/18 23:09 Dose: 50 mg Admin: 12/27/18 01:49 Dose: 50 mg Lorazepam (Ativan) 2 mg PO Q4 PRN PRN Reason: Anxiety Stop: 01/24/19 02:07 Last Admin: 12/29/18 20:29 Dose: 2 mg Admin: 12/29/18 03:53 Dose: 2 mg Admin: 12/27/18 19:01 Dose: 2 mg Admin: 12/25/18 16:26 Dose: 2 mg Lorazepam (Ativan) 1 mg PO HS LOKESH Stop: 02/01/19 21:59 Last Admin: 01/04/19 21:07 Dose: 1 mg Admin: 01/03/19 21:06 Dose: 1 mg Admin: 01/02/19 21:12 Dose: 1 mg Miscellaneous (Remove Nicoderm Patch) 1 ea N/A DAILY@2100 LOKESH Stop: 01/24/19 20:59 Last Admin: 01/04/19 21:08 Dose: Not Given Admin: 01/03/19 21:09 Dose: Not Given Admin: 01/02/19 21:12 Dose: 1 ea Admin: 01/01/19 21:17 Dose: Not Given Admin: 12/31/18 21:06 Dose: Not Given Admin: 12/30/18 21:00 Dose: 1 ea Admin: 12/29/18 20:27 Dose: Not Given Admin: 12/28/18 21:35 Dose: Not Given Admin: 12/27/18 21:09 Dose: Not Given Admin: 12/26/18 20:57 Dose: Not Given Admin: 12/25/18 21:07 Dose: Not Given Nicotine (Nicoderm Cq) 14 mg TD QAM LOKESH Stop: 01/24/19 08:59 Last Admin: 01/05/19 08:52 Dose: 14 mg Admin: 01/04/19 07:47 Dose: Not Given Admin: 01/03/19 09:09 Dose: 14 mg Admin: 01/02/19 10:02 Dose: 14 mg Admin: 01/01/19 09:41 Dose: 14 mg Admin: 12/31/18 10:37 Dose: 14 mg Admin: 12/30/18 08:38 Dose: 14 mg Admin: 12/29/18 12:33 Dose: 14 mg Admin: 12/28/18 09:18 Dose: 14 mg Admin: 12/27/18 13:22 Dose: 14 mg Admin: 12/26/18 20:14 Dose: 14 mg Admin: 12/26/18 09:20 Dose: Not Given Admin: 12/25/18 10:50 Dose: 14 mg Nicotine Polacrilex (Nicorette 2mg) 1 piece MT UD PRN PRN Reason: Nicotine Withdrawal Stop: 01/24/19 02:05 Last Admin: 01/04/19 17:41 Dose: 1 piece Admin: 12/28/18 10:01 Dose: 1 piece Paliperidone (Invega) 9 mg PO DAILY LOKESH Stop: 01/30/19 11:44 Last Admin: 01/05/19 08:52 Dose: 9 mg Admin: 01/04/19 07:46 Dose: 9 mg Admin: 01/03/19 09:10 Dose: 9 mg Admin: 01/02/19 10:01 Dose: 9 mg Admin: 01/01/19 09:41 Dose: 9 mg Admin: 12/31/18 11:52 Dose: 9 mg Trihexyphenidyl HCl (Artane) 2 mg PO BID [facility] Stop: 01/27/19 20:59 Last Admin: 01/05/19 08:52 Dose: 2 mg Admin: 01/04/19 21:07 Dose: 2 mg Admin: 01/04/19 07:46 Dose: 2 mg Admin: 01/03/19 21:05 Dose: 2 mg Admin: 01/03/19 09:10 Dose: 2 mg Admin: 01/02/19 21:10 Dose: 2 mg Admin: 01/02/19 10:01 Dose: 2 mg Admin: 01/01/19 21:14 Dose: 2 mg Admin: 01/01/19 09:41 Dose: 2 mg Admin: 12/31/18 21:01 Dose: 2 mg Admin: 12/31/18 10:35 Dose: 2 mg Admin: 12/30/18 20:57 Dose: 2 mg Admin: 12/30/18 08:33 Dose: 2 mg Admin: 12/29/18 20:26 Dose: 2 mg Admin: 12/29/18 12:33 Dose: 2 mg Admin: 12/28/18 21:35 Dose: 2 mg
--- NOTE | 2019-01-05 10:40 | Psychiatric Progress Note ---
Date of Service January 05, 2019 Impression / Recommendations Impression The patient continues to do well. In fact, his improvement is quite noticeable within the context of the fact that I had not seen him for 1 week. Clearly, his thoughts are more organized, although he continues to have episodic loosening of associations without external structure. No delusional material was identified and the patient's thought content today, and his affect is generally euthymic. His serum valproic acid level yesterday was in the subtherapeutic range, and so his dose of Depakote has been increased to 1500 mg daily. The patient notes that, in the past, at this dose he has developed otherwise unspecified "muscle problems," and I advised him to report this to his outpatient psychiatrist should that occur, but, at present, the important thing would be to bring the valproic acid level into the therapeutic range. Possibly, once that is achieved, it may be reasonable to lower his dose to 1250 mg daily, if side effects emerge. There is no cogwheel rigidity on testing, the patient does not endorse symptoms of akathisia. The plan will be to continue Invega 9 mg daily, haloperidol 5 mg at bedtime, lorazepam 1 mg at bedtime (material risks and anticipated benefits of lorazepam were again reviewed with the patient), Artane 2 mg twice a day, and Depakote 1500 mg daily. We reviewed the patient safety plan, and this plan includes speaking with his parents showed he feel suicidal or homicidal, or should he have the impulse to stop treatment or to travel out of state on his own. At the patient' s family's request, his anticipated discharge medications were transmitted to his local pharmacy in [facility]. Lorazepam could not be transmitted electronically because it is a controlled drug, and so a paper prescription has been written and will be given to the patient on discharge. (1) Unspecified psychosis: 12/25 - Haldol 5 mg q 4 h prn psychosis until we obtain more information - Call father for additional supplemental information about past meds, psych providers and hospitalizations - Continue Depakote ER 100 mg HS with level in the AM - DC Seroquel - Q 15 min checks for safety - Excuse patient from groups today - Will need psychiatric aftercare - Safety planning - Patient doesn't know where his car is. Will need to clarify with [facility] police - Obtain records from [facility] 12/26 - Invega 3 mg HS increasing to 6 mg tomorrow - Consider Sustenna for improved compliance, but would like to see previous records to determine why Sustenna was stopped in the past. - Continue reality orientation, safety planning 12/27 - Collateral obtained from parents and outpatient psychiatric records reviewed, awaiting [facility] records. - Continue paliperidone and increase to 6 mg daily. Fasting lipid profile and glucose ordered for tomorrow morning for monitoring on an atypical antipsychotic. - Parents coming this weekend from [place], will hold family meeting. 12/28 - Continue Invega 6 mg and if no limiting side effects, initiate Sustenna - Patient c/o some restlessnes and muscle sensations. Will order one time dose Artane 5 mg and if helpful will schedule. 12/29 -After interviewing this patient fairly extensively I note that he does appear to be somewhat depressed at times, but he clearly seems to meet criteria for schizophrenia. More specifically, there are prominent delusions and hallucinations, and clear evidence of a thought disorder characterized by highly disorganized thinking and loose associations. -The patient indicates that he feels that he is tolerating both valproic acid and Invega well, and notes no side effects. -I will increase his dose of that Invega to a dose of 9 mg at bedtime, beginning tonight. 12/30 -continue increased dose of Invega as well as continued utilization of Haldol and Ativan prns - family meeting today - reviewed fasting labs for baseline were wnl 12/31 -remains disorganized -Continue medication regimen with plan to titrate invega as appropriate -will consider standing at bedtime Haldol and Ativan if he appears more agitated today after not receiving the prn medication yesterday 01/01 - Continue current meds. Explore options for continued treatment at a hospital closer to home in [place]. 01/02 -No accepting facilities in [place] for ongoing inpatient treatment. Will start working on discharge plans. Continue current medications, and reduce lorazepam from 2 mg at bedtime to 1 mg at bedtime to try to limit a.m. sedation. 01/03 - Continue current meds - Collaborate with parents to discharge on Tuesday - Confirm aftercare plans 01/04 - Continue current meds - Complete aftercare in anticipation of discharge on Friday 01/05 -Continue current meds -Material risks and anticipated benefits of his current medications were reviewed with the patient. -Importance of adherence with prescribed medications was stressed. -Family is to arrive tomorrow at approximately 1PM to pick him up and obtain instructions. -Aftercare arrangements in place. Inventory Assets Strengths: Willingness to engage in treatment. Goal oriented. Needs: To consistently be in psychiatric treatment Risk Factors Assessment Male: Yes : Yes Do You Have Access To A Gun?: No Health Problems: No Mental Health Diagnoses: Yes Substance Use Disorders: No Previous Attempt: No Family History of Suicide: Yes Previous Psychiatric Hospitalization: Yes Smoker: Yes Protective Factors Assessment : No Responsible for Young Children: No Employed: Yes Supportive Family: Yes Interval History Identifying Information 28 yo male from [place], admitted voluntarily on 12/25/18 on transfer from [place], after he had traveled out of [facility] and was confused. He has a long mental health history, diagnosed with schizoaffective disorder, and multiple hospitalizations including long-term treatment at the [facility]. Chief Complaint "I'm doing better". Review of Systems Sleep Information Total Hours of Sleep: 7 Sleep Comments: pt appeared to sleep 1.5 hrs during evening shift. pt on q-15 minute checks Meal Information Percent Meal Consumed - Breakfast: 60 Percent Meal Consumed - Lunch: 100 Percent Meal Consumed - Dinner: 75 Nutrition Comment: per meal record Medication Trials Clozaril- side effects Sustenna -most effective medication per parents Haldol- tremor risperdal- slowed zyprexa- weight gain Subjective Subjective Patient was seen & assessed and interval progress reviewed with Treatment Team. In addition, I met with the patient individually in order to assess his current mental status, evaluate his response to treatment, coordinate and make any necessary changes in his treatment regimen, and address issues and concerns that might arise. The patient tells me that he is feeling much better and notes , specifically, that his thinking is more "together." He reports that his mood has been "pretty good," and that he has is sleeping fairly well and his appetite remains "good." He describes an eagerness to return home with his family, and is able to cites several specific goals, such as returning to the gym, possibly returning to work with his former employer, and continuing in treatment on an outpatient basis. He also smiles and says that he is looking forward to going to his favorite restaurant in order to eat a gyro sandwich. We reviewed his current medications and he is able to name the, but is not entirely clear of the purpose of each, and so this was reviewed with him in the office. He reports that he is not experiencing any side effects from these medications currently, but does note that, in the past, at higher doses of Depakote he has felt a certain amount of muscle rigidity. The patient denies feeling "stiff" or restless, and on examination there is no cogwheel rigidity noted. The patient reports that his parents are going to be arriving in [place] tomorrow and, as far as he knows, they plan is for him to return with him to his home in [facility] for further treatment on an outpatient basis. Medication Trials Clozaril- side effects Sustenna -most effective medication per parents Haldol- tremor risperdal- slowed zyprexa- weight gain Physical Exam Psychiatric Orientation: oriented x 3 Apperance: appropriately dressed Eye Contact: + fair eye contact Motor Behavior: steady gait and station and no abnormal motor movements Speech: normal rate/rhythm/volume of speech Affect: euthymic affect The patient describes his mood as "good." For the most part, the patient's associations are tight. However, he periodically demonstrates loose associations. For example, when telling me about his plan to return to work, he states, "I do not want to go in there and throw my temporal lobes around." (He was unable to explain what he meant by that, but when I suggested that perhaps his reference was to dyscontrol behavior he smiled and said "may be.") Thought Content: reality based without delusions Suicidal Thoughts: denies suicidal thoughts Homicidal Thoughts: denies homicidal thoughts Hallucinations: no auditory hallucinations Cognition: recent memory grossly intact, remote memory grossly intact and attention grossly intact Estimated Intelligence: average estimated intelligence Insight: + limited insight Judgement: + fair judgement Vital Signs (Past 24 Hours) Last Vital Signs Temp 36.7 C 01/05/19 08:31 Pulse 76 01/05/19 08:31 Resp 16 01/05/19 08:31 BP 96/57 L 01/05/19 08:31 Results & Data Current Inpatient Medications Current Inpatient Medications: Current Inpatient Medications Acetaminophen (Tylenol) 650 mg PO Q4H PRN PRN Reason: Headache or Minor Fever Stop: 01/24/19 02:05 Last Admin: 12/27/18 15:41 Dose: 650 mg Al Hydrox/Mg Hydrox/Simethicone (Maalox) 30 ml PO Q4H PRN PRN Reason: GI Upset Stop: 01/24/19 02:05 Benztropine Mesylate (Cogentin) 1 mg PO Q4 PRN PRN Reason: EPS Stop: 01/24/19 02:10 Last Admin: 12/31/18 21:01 Dose: 1 mg Bismuth Subsalicylate (Kaopectate) 15 ml PO PRN PRN PRN Reason: Loose Stool Stop: 01/24/19 02:05 Divalproex Sodium (Depakote Extended Release) 1,500 mg PO HS LOKESH Stop: 02/03/19 21:59 Last Admin: 01/04/19 21:08 Dose: 1,500 mg Haloperidol (Haldol) 5 mg PO Q4 PRN PRN Reason: Agitation Stop: 01/24/19 02:08 Last Admin: 12/29/18 20:29 Dose: 5 mg Haloperidol (Haldol) 5 mg PO HS LOKESH Stop: 01/30/19 21:59 Last Admin: 01/04/19 21:07 Dose: 5 mg Hydroxyzine HCl (Vistaril) 50 mg PO HSZ PRN PRN Reason: Insomnia Stop: 01/24/19 02:05 Last Admin: 12/31/18 01:16 Dose: 50 mg Hydroxyzine HCl (Vistaril) 25 mg PO Q4H PRN PRN Reason: Anxiety Stop: 01/24/19 02:05 Lorazepam (Ativan) 2 mg PO Q4 PRN PRN Reason: Anxiety Stop: 01/24/19 02:07 Last Admin: 12/29/18 20:29 Dose: 2 mg Lorazepam (Ativan) 1 mg PO HS LOKESH Stop: 02/01/19 21:59 Last Admin: 01/04/19 21:07 Dose: 1 mg Magnesium Hydroxide (Milk Of Magnesia) 30 ml PO DAILY PRN PRN Reason: Heartburn Stop: 01/24/19 02:05 Miscellaneous (Remove Nicoderm Patch) 1 ea N/A DAILY@2100 LOKESH Stop: 01/24/19 20:59 Last Admin: 01/04/19 21:08 Dose: Not Given Nicotine (Nicoderm Cq) 14 mg TD QAM LOKESH Stop: 01/24/19 08:59 Last Admin: 01/05/19 08:52 Dose: 14 mg Nicotine Polacrilex (Nicorette 2mg) 1 piece MT UD PRN PRN Reason: Nicotine Withdrawal Stop: 01/24/19 02:05 Last Admin: 01/04/19 17:41 Dose: 1 piece Paliperidone (Invega) 9 mg PO DAILY LOKESH Stop: 01/30/19 11:44 Last Admin: 01/05/19 08:52 Dose: 9 mg Sodium Chloride ([place] Nasal) 1 - 2 sprays NA PRN PRN PRN Reason: Nasal Dryness/Congestion Stop: 01/24/19 02:05 Trihexyphenidyl HCl (Artane) 2 mg PO BID LOKESH Stop: 01/27/19 20:59 Last Admin: 01/05/19 08:52 Dose: 2 mg Post Discharge Appointments Primary Care Physician Name Of Family Doctor: unknown Psychiatrist Name of Psychiatrist: [facility] - Dr Donovan Psychiatrist's Date of Appointment with Psychiatrist: 01/11/19 Time of Appointment with Psychiatrist: 2:30pm Psychiatric Appointment Comment: [address] [place], [address] Therapist Name of Therapist: [facility] Therapist's Date of Therapist Appointment: 01/09/19 Time of Therapist Appointment: 3pm Therapy Appointment Comment: [address] [place], [address] Rn Employee Health Name of Rn Employee Health: [facility] Phone Number for R[facility] Employee Health: [phone] Case Management Appointment Comment: [address] [place], [address] Contact Information Discharge Phone Number: No phone number provided Discharge Address: [address], [place] [address] Contact Information Comment: [address] [place] [address] CPT Code CPT Code 85499
[2019-01-05] MEDS: LORazepam 1 MG TAB PO SCH (21:17)
[2019-01-05] MEDS: HALOPERIDOL 5 MG TAB PO SCH (21:17)
[2019-01-05] MEDS: DIVALPROEX EXTENDED RELEASE 500 MG TAB PO SCH (21:17)
[2019-01-06] MEDS: TRIHEXYPHENIDYL HCL 2 MG TAB PO SCH (08:17)
[2019-01-06] MEDS: PALIPERIDONE 3 MG TABCR PO SCH (08:17)
[2019-01-06] MEDS: NICOTINE 14 MG/24 HR PATCH TD SCH (08:20)
--- NOTE | 2019-01-06 09:13 | Discharge Summary ---
Date of Service January 06, 2019 History of Present Illness The patient is a 28 yo male who grew up in [place]. He is a difficult historian admitting his thoughts are confused and slowed. 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 He is embarrassed to go to work late. He recently decided that he wanted to go visit an uncle and cousins in [place], and left without notifying work. He says that he got as far as [place] before he became confused and didn't know where he was , and so he pulled over at a bar and had some beer and cigarettes. From there the timeline is a little unclear, but says that at one point he pulled into a confucianism parking lot, spent the night somewhere at a hotel. The next day he found a map, and went to a gas station an "hung out for a few hours". He started driving again and got to [place] before he got confused again, pulled into a [employer] and had a proteing shake. It is reported that the store employees called 911 and he was taken to [facility], and from there transferred to our hospital. Today he was reluctant to get up for the interview, as he got little sleep last night. He reports that in the last month his mood has been "Very depressed.", "Very driven.", "Not happy.". His sleep is "pretty consistent" and energy is "good". He reports "a lot" of anxiety but denies panic attacks. He denies ever having had aud/vis hallucinations but had an experience in the [facility] during which he thought "all the blood was falling out of me". He reports slowed thoughts, saying he is having trouble expressing himself. He denies chronic problems with anger, but admits to hitting a tray in the [facility] in anger resulting in scraped knuckles. He denies chronic SIB, but tearfully says that he burnt himself once in the past. He says that he has been diagnosed with bipolar disorder, and schizoaffective disorder in the past, but is not currently being seen by a psychiatrist. Physical Exam Psychiatric Orientation: alert, oriented x 3 and cooperative Apperance: appropriately dressed, appropriately groomed and appeared stated age Eye Contact: + fair eye contact Motor Behavior: steady gait and station and no abnormal motor movements Speech: normal rate/rhythm/volume of speech Affect: + blunted affect "Good." Thought Process: goal directed thought process Thought Content: reality based without delusions Suicidal Thoughts: denies suicidal thoughts Homicidal Thoughts: denies homicidal thoughts Hallucinations: no auditory hallucinations and no visual hallucinations Cognition: attention grossly intact and language grossly intact Insight: + impaired insight Judgement: + impaired judgement Vital Signs (Past 24 Hours) Last Vital Signs Temp 36.7 C 01/06/19 06:51 Pulse 65 01/06/19 06:53 Resp 18 01/06/19 06:51 BP 103/61 01/06/19 06:53 Principal Diagnosis Schizoaffective disorder, bipolar type by history. Rule out schizophrenia. Psychiatric Data The patient was hospitalized on our unit for 12 days. Outpatient records were obtained and reviewed and revealed a past diagnosis of schizoaffective disorder , bipolar type. During his hospitalization here, although he had mild depressive symptoms, he appeared predominantly psychotic, and a diagnosis of rule out schizophrenia was added. He received multiple doses of haloperidol as needed which had good effect and no side effects, so it was scheduled at bedtime as it appeared to help with disorganization and agitation. His home dose of Depakote was initially continued, but as his trough level was low, it was increased to 1500 mg at bedtime. Lorazepam was also scheduled 2 mg at bedtime, and later reduced to 1 mg at bedtime to try to limit morning sedation. He was started on paliperidone, which was titrated to 9 mg daily. He reported mild restlessness and muscle sensations, so was started on trihexyphenidyl 2 mg twice daily, which was helpful. His parents were involved throughout his hospitalization, and assisted with discharge planning. At the request, the patient was referred to multiple psychiatric hospitals in [place] near their home, but no accepting facility was able to be identified. The patient was therefore referred to the [facility] team for outpatient follow-up. Patient demonstrated improvement in his psychosis, disorganization, thought blocking, and agitation. He was able to participate in groups, and reported improved mood. He was tending to his ADLs, eating and sleeping without difficulty. He had an episode of agitation early in his stay, where he became focused on another patient's visitor and was verbally aggressive. He was able to be de-escalated. He was in good behavioral control during the latter part of his hospitalization. His parents came and visited with him on the unit, and reported that he was improved. They informed staff that police had located his car and that they picked it up. Day of Discharge Assessment Staff report the patient has been calm, reporting good mood, and in good behavioral control. He is taking medications as prescribed, eating and sleeping well, and performing ADLs independently. He is attending groups and participating appropriately, but at times makes unrelated comments. He rates his mood an 8 out of 10, and reports he is looking forward to discharge. He reports good mood, denies mood swings, SI, HI, and hallucinations. He denies paranoia and significant anxiety. He reports good sleep and appetite. He is future oriented, stating he is looking forward to getting back into shape and exercising, getting his own apartment, and a job. Discussed recommendations that he not drive until he is fully stabilized and has been cleared by his outpatient physician, and he agreed. He has multiple questions about his medications, and we reviewed potential long-term effects and the need for monitoring of LFTs, cholesterol, blood sugar, and weight. Also discussed that the Lorazepam and haloperidol can hopefully be tapered off if he maintains stability. Transition of Care Transition Of Care Record: was reviewed with the patient Advance Directives Advance Directives Information Provided: Yes Advance Directives: No (none known per [facility]) Mental Health Advance Directive: No Advance Directives on File: No Living Will: No Power of Camera Maker: No Advance Directives Reason:: Declines as Mental Health Visit. Risk Factors Assessment Risk factors were mitigated by admission to the inpatient unit, adjusting medications to target psychotic symptoms, involvement of his parents who he lives with, contact with his outpatient providers in [place], review of past records, engaging him in groups and therapy, working on healthy coping skills and a discharge safety plan. The patient has demonstrated improvement in psychotic symptoms, but has been in good behavioral control, is consistently denying thoughts of harming himself or others, has not been aggressive or threatening, is taking medications as prescribed, and states willingness to follow up with outpatient treatment. He is requesting discharge, and is he is no longer at acute risk of harm to himself or others, can be managed as an outpatient at this time. Male: Yes : Yes Do You Have Access To A Gun?: No Health Problems: No Mental Health Diagnoses: Yes Substance Use Disorders: No Previous Attempt: No Family History of Suicide: Yes Previous Psychiatric Hospitalization: Yes Hopelessness: No Smoker: Yes Protective Factors Assessment Scientology Beliefs: No : No Responsible for Young Children: No Employed: Yes Supportive Family: Yes Tobacco Cessation at Discharge Tobacco Cessation Medication Prescribed at Discharge: Offered & Prescribed ( Nicotine patch. Follow-up with psychiatrist on 01/11/2018 for ongoing treatment and smoking cessation.) Antipsychotic Medications The patient has failed at least 3 trials of monotherapy, haloperidol, clozapine , and paliperidone. Total Time Total Time Spent: Greater Than 30 Minutes Total Time Includes: Examination of the patient, Discharge Planning, Medication Reconciliation and Communication with other providers Discharge Data Lab Results 12/28/18 01/04/19 08:08 07:11 Fasting Glucose 89 Triglycerides 83 Cholesterol 169 LDL Cholesterol, Calc 104 VLDL Cholesterol, Calc 17 HDL Cholesterol 48 Cholesterol/HDL Ratio 4 Valproic Acid 46 L Hospital Course (1) Unspecified psychosis: 12/25 - Haldol 5 mg q 4 h prn psychosis until we obtain more information - Call father for additional supplemental information about past meds, psych providers and hospitalizations - Continue Depakote ER 100 mg HS with level in the AM - DC Seroquel - Q 15 min checks for safety - Excuse patient from groups today - Will need psychiatric aftercare - Safety planning - Patient doesn't know where his car is. Will need to clarify with [facility] police - Obtain records from [facility] 12/26 - Invega 3 mg HS increasing to 6 mg tomorrow - Consider Sustenna for improved compliance, but would like to see previous records to determine why Sustenna was stopped in the past. - Continue reality orientation, safety planning 12/27 - Collateral obtained from parents and outpatient psychiatric records reviewed, awaiting [facility] records. - Continue paliperidone and increase to 6 mg daily. Fasting lipid profile and glucose ordered for tomorrow morning for monitoring on an atypical antipsychotic. - Parents coming this weekend from [place], will hold family meeting. 12/28 - Continue Invega 6 mg and if no limiting side effects, initiate Sustenna - Patient c/o some restlessnes and muscle sensations. Will order one time dose Artane 5 mg and if helpful will schedule. - Fasting glucose and cholesterol levels checked for monitoring on an atypical antipsychotic; all values within normal. 12/29 -After interviewing this patient fairly extensively I note that he does appear to be somewhat depressed at times, but he clearly seems to meet criteria for schizophrenia. More specifically, there are prominent delusions and hallucinations, and clear evidence of a thought disorder characterized by highly disorganized thinking and loose associations. -The patient indicates that he feels that he is tolerating both valproic acid and Invega well, and notes no side effects. -I will increase his dose of that Invega to a dose of 9 mg at bedtime, beginning tonight. 12/30 -continue increased dose of Invega as well as continued utilization of Haldol and Ativan prns - family meeting today - reviewed fasting labs for baseline were wnl 12/31 -remains disorganized -Continue medication regimen with plan to titrate invega as appropriate -will consider standing at bedtime Haldol and Ativan if he appears more agitated today after not receiving the prn medication yesterday 01/01 - Continue current meds. Explore options for continued treatment at a hospital closer to home in [place]. 01/02 -No accepting facilities in [place] for ongoing inpatient treatment. Will start working on discharge plans. Continue current medications, and reduce lorazepam from 2 mg at bedtime to 1 mg at bedtime to try to limit a.m. sedation. 01/03 - Continue current meds - Collaborate with parents to discharge on Tuesday - Confirm aftercare plans 01/04 - Valproic acid trough level low at 46; increase Depakote to 1500 mg at bedtime, and recheck a trough after 5 days. - Complete aftercare in anticipation of discharge on Friday 01/05 -Continue current meds -Material risks and anticipated benefits of his current medications were reviewed with the patient. -Importance of adherence with prescribed medications was stressed. -Family is to arrive tomorrow at approximately 1PM to pick him up and obtain instructions. -Aftercare arrangements in place. 01/06 -Previous diagnosis was schizoaffective disorder, bipolar type. Schizophrenia has been added as a rule out diagnosis given the prominence of his psychotic symptoms here and per report of family. -Continue Depakote 1500 mg nightly, and trough level can be rechecked on or after 01/09/2019. -Continue paliperidone 9 mg daily, haloperidol 5 mg at bedtime, trihexyphenidyl 2 mg twice daily, and lorazepam 1 mg at bedtime. Lorazepam can be discontinued in the next couple of weeks after he further stabilizes. Haldol may also be able to be discontinued if he maintains stability -Patient being discharged into [facility] care to return to his home in [facility], and resume outpatient treatment there. He has appointments with his psychiatrist and therapist next week. -Discussed recommendations that he not drive until he is fully stabilized and been cleared by his outpatient physician, and he voiced understanding. Post Discharge Appointments Primary Care Physician Name Of Family Doctor: unknown Psychiatrist Name of Psychiatrist: [facility] - Dr Donovan Psychiatrist's Date of Appointment with Psychiatrist: 01/11/19 Time of Appointment with Psychiatrist: 2:30pm Psychiatric Appointment Comment: [place], [address] Therapist Name of Therapist: [facility] Therapist's Date of Therapist Appointment: 01/09/19 Time of Therapist Appointment: 3pm Therapy Appointment Comment: [address] [place], [address] [employer] Name of [employer] Operator: [facility] Phone Number for [employer]: [phone] Case Management Appointment Comment: [place], [address] Smoking Cessation Counseling Tobacco Cessation Medication Prescribed at Discharge: Offered & Prescribed ( Nicotine patch. Follow-up with psychiatrist on 01/11/2018 for ongoing treatment and smoking cessation.) Contact Information Discharge Phone Number: No phone number provided Discharge [address]: [address] [place] [id number] Contact Information Comment: [address] [place] [id number] Discharge Plan Discharge Items Patient Disposition: Home - Self-Care Reason For Visit: BIPOLAR DISORDER Discharge Diagnosis: Schizoaffective disorder, bipolar type by history Rule out schizophrenia Discharge Goals: Improve disease control, Improve function, Learn about illness and Therapeutic intervention Activity: Per 'Additional Instructions' section Driving/Machine Use Comment: No driving until you have stabilized and are cleared by your outpatient physician. Non-emergency contact: Primary Care Provider, Psychiatrist, Therapist and Body Stylist Call non-emergency contact if: you have any medication questions Follow-up/Referrals: PCP,NO [Primary Care Provider] - Diet: Regular Addtl Provider Instructions: SPECIAL CARE INSTRUCTIONS: 1. Follow through with your scheduled aftercare appointments. If unable to keep an appointment, please call to reschedule. 2. Take your medication only as prescribed. Medication should not be changed or stopped without the approval of your doctor. In the event of worsening symptoms or concerns about side effects, contact your doctor immediately. 3. Utilize new healthy coping skills, anger management skills, and stress management skills learned during your hospitalization. Journal feelings and process them with a support person. Identify stressors or situations that may result in relapse, deterioration or inappropriate behaviors and develop a plan to deal with those issues. 4. If your coping skills are ineffective and you are in crisis, contact your outpatient providers for direction. If unable to reach your providers, please call the CAN HELP LINE AT or go to the closest Emergency Room. 5. Avoid alcohol and un-prescribed drugs. 6. You have been provided with the Mental Health Advance Directives Pamphlet for your review. AFTERCARE APPOINTMENTS: * Please call your insurance company prior to your scheduled appointment to confirm your aftercare providers are covered. Take your insurance information to your appointments. WHO TO CALL AND WHEN: Medical Emergencies: For questions or emergencies related to your hospital stay, please contact the Inpatient Behavioral Health Unit at [phone]. A sugar trucker is on-call 06/06 for the Behavioral Health Unit for emergencies At any time you feel your situation is an emergency, you may also call [phone] immediately. Your Doctors Instructions noted above were prepared by provider Amanda Duenas MD. Prescriptions: New nicotine [Nicoderm CQ] 14 mg/24 hr Patch 24 Hour 14 mg Transdermal QAM Qty: 14 RF: 0 haloperidol 5 mg Tablet 5 mg PO HS Qty: 30 RF: 0 divalproex 500 mg Tablet Extended Release 24 Hr 1,500 mg PO HS Qty: 90 RF: 0 lorazepam 1 mg Tablet 1 mg PO HS Qty: 30 RF: 0 trihexyphenidyl 2 mg Tablet 2 mg PO BID Qty: 60 RF: 0 paliperidone [Invega] 3 mg Tablet Extended Release 24hr 9 mg PO DAILY Qty: 90 RF: 0 Discontinued Depakote ER 1,000 mg PO HS RF: 0 quetiapine [Seroquel XR] 300 mg Tablet Extended Release 24 Hr 300 mg PO PM RF: 0 Stand-Alone Forms: [employer] [facility] Discharge Orders: Discharge Order (Routine); Ordered 01/06/19 Ordered By: Amanda Duenas Admission Data Admit Date/Time: 12/25/18 01:23 Attending Provider: Amanda Duenas Admit Provider: Leela Segundo Primary Care Provider: PCP,MAINE Service: Psychiatry Other Interventions: Discharge Summary Assessment (RN) Last Done: 01/05/19 08:31 PSY Interdisciplinary Discharge Planning Last Done: 01/05/19 10:10 Pending Studies at Discharge: No
[2019-01-06] MEDS: LORazepam 2 MG TAB PO PRN (13:50)
== END 2019-01-06 14:10 | disposition home or self-care (01) | DRG 885 ==
LOC: 3S 01:23